=== PATIENT | female | born 1950 | race Caucasian/White ===

== ENCOUNTER → 2016-09-29 | Outpatient (CLI) | payer MEDICARE ==
[~2016-09-29] MED LIST: ABILIFY2 MG PO; ALBUTEROL2.5 MG/0.5 INH; AMARYL1 M1 PO; AMITRIPTYLINE25 MG PO; AMOXICILLIN500 M2 PO; ANTIVERT25 MG PO; ASPIRIN81 M1 PO; ATIVAN0.5 MG PO; ATIVAN1 MG PO; ATOXIMETIN-B1 CAP PO; AUGMENTIN 875 M1 TAB PO; AUGMENTIN 875-875 MG PO; BACTRIM DS 8001 TA1 PO; CEFAZOLIN2 GM/20 ML IV; CEPHALEXIN500 M1 PO; CIPRO250 MG PO; CIPRO500 MG PO; CLARITIN10 MG PO; CLEOCIN HCL150 MG PO; CLEOCIN PH600 MG/4 M IV; CLINDAMYCIN HC300 MG PO; COMBIVENT1 ARO IH; COMPAZINE10 MG PO; COREG25 MG PO; COZAAR100 MG PO; CYMBALTA30 MG PO; CYMBALTA60 MG PO; DAYPRO600 M1 PO; DELTASONE10 MG PO; DELTASONE20 M1 PO; DICYCLOMINE HCL20 MG PO; DIFLUCAN100 MG PO; DIOVAN HCT PO; DITROPAN XL5 MG PO; DOXYCYCLINE MO100 MG PO; DOXYCYCLINE100 M3 PO; DOXYCYCLINE100 MG PO; DOXYCYCLINE150 MG PO; DUONEB 3 MG/3 ML3 M1 INH; EC NAPROSYN500 MG PO; ELAVIL10 MG PO; ELAVIL25 MG PO; FLEXERIL10 MG PO; FLONASE ALLERG9.9 ML NAS; FLONASE0.05 MG/AC NS; FOLTANX TABLET1 EACH PO; HUMALOG100 U/ML SC; HUMULIN 70100 UNIT/1 SQ; HYDROCODONE BIT1 T11 PO; HYDROXYZINE HYD50 MG PO; IODINE PO; IVIG IV; JANUVIA50 MG PO; JARDIANCE10 MG PO; K-Dur 20MEQ20 MEQ PO; K-TAB20 MEQ PO; KEFLEX500 MG PO; KLOR-CON M1010 MEQ PO; KLOR-CON M2020 MEQ PO; LAMISIL AT11 TP; LAMISIL250 MG PO; LANTUS SOLOS100 U/M1 SC; LANTUS100 U/ML SC; LASIX40 MG PO; LASIX80 MG PO; LEVAQUIN750 M1 PO; LEVOFLOXACIN500 MG PO; LIPITOR10 MG PO; LIPITOR20 MG PO; LOSARTAN POTASS50 M1 PO; LOSARTAN POTASS50 MG PO; MELATONIN10 M2 PO; MELATONIN5 M1 PO; METAXALONE800 MG PO; METOLAZONE5 MG PO; MORPHINE SULFAT30 M9 PO; MUCINEX ER600 MG PO; MUCINEX600 MG PO; NAPROSYN500 MG PO; NAPROXEN D/R500 MG PO; NAPROXEN500 MG PO; NEURONTIN100 MG PO; NEURONTIN300 MG PO; NEURONTIN600 MG PO; NEURONTIN800 MG PO; NICODERM C14 MG/24 H TD; NICODERM C14 MG/241 T; NICOTINE T21 MG/24 H T; NORCO 10-325 T1 EACH PO; NOVAPLUS CLINDA1 SO1 IV; NOVOLOG 70/30 M10 ML SC; NOVOLOG FLEX100 U/ML SC; NYSTATIN T; NYSTATIN100000 U/M PO; OMEPRAZOLE20 M2 PO; OXYBUTYNIN5 MG PO; PERCOCET 325 MG1 TA5 PO; PERCOCET 325 MG1 TA7 PO; PERCOCET 325 MG1 TAB PO; PERCOCET 500 MG1 TAB PO; PHENERGAN25 M1 PO; POTASSIUM CHLO20 ME3 PO; POTASSIUM20 MEQ PO; PREDNISONE10 MG PO; PRILOSEC20 MG PO; PRILOSEC40 MG PO; PROVENTIL0.09 MG/AC IH; RANITIDINE HCL300 M2 PO; REMERON45 MG PO; ROBAXIN750 MG PO; ROBITUSSIN AC 110 ML PO; SIMVASTATIN20 MG PO; SIMVASTATIN40 MG PO; SINGULAIR10 M1 PO; SKELAXIN800 MG PO; SPIRIVA18 MCG PO; STRESS PO; SYMBICORT1 AE1 IH; SYMBICORT1 AE1 INH; TOPAMAX25 M3 PO; TORSEMIDE100 MG PO; TRAMADOL HCL50 MG PO; VANCO 1.51.5 GM/500 IV; VENTOLIN H0.09 MG/AC INH; VENTOLIN0.09 MG/AC INH; VIBRA-TAB100 M1 PO; VICODIN 5/500 505 M1 PO; VICODIN 5/500 505 MG PO; VICODIN ES 7501 TA1 PO; VISTARIL25 MG PO; VITAMIN D1000 IU PO; VITAMIN D5000 I3 PO; VITAMIN D50000 I1 PO; VITAMIN E100 UNI1 PO; VOLTAREN1% TP; VOLTAREN11 TP; VOLTAREN50 M1 PO; ZANTAC150 MG PO; ZITHROMAX Z PA250 MG PO; ZITHROMAX250 MG PO; ZITHROMAX500 MG PO; ZOFRAN4 MG PO; Zaroxolyn,Diul2.5 MG PO; Zofran4 MG PO; [UNRECOGNIZED DRUG - OTHER] TP
--- NOTE | ~2016-09-29 | PR ---
[place], [place] PROGRESS NOTE NAME: JACKIE VILLASENOR [facility] #: [id number] UNIT #: [id number] ROOM: DOCTOR: TRACY LowryJULIO BIRTHDATE: [birth year] DOS: 09/29/2016 CHIEF COMPLAINT: Followup of left great toe ulceration as well as cellulitis of the right leg. HISTORY OF PRESENT ILLNESS: The patient has had an ulcer of her left great toe that has been going on for 2-1/2 months at least. It is associated with diabetes, neuropathy, and recurrent callus formation. Modifying factors are difficulty offloading. She has problems with balance issues and she will not be able to tolerate a contact cast. She even has difficulty tolerating just a regular postop shoe. She is using Puracol Ag in the wound and has not had any new complaints. She is also using a foam dressing as well. She does have a history of recent cellulitis of the right leg, which is definitely resolved at this point. She has a very small open wound present on the right leg, which is definitely small and is almost healed at this point with no specific issues. She said she had a recent steroid injection due to her breathing. Her other modifying factors are poorly controlled edema, diabetes, neuropathy as well as severe COPD, chronic shortness of breath, dyspnea, and immunodeficiency. OBJECTIVE: Her vital signs are stable. Blood pressure is 120/60, pulse of 68, respirations 18, temperature is 98.8. The left great toe is open still at 0.5 x 0.5 x 0.1. There is surrounding callus as before, but not quite as thick. There is no edema. There is no erythema and no tenderness. There is no purulence or sign of infection. The right lower extremity wound is still very slightly open at 1 x 0.3 x 0.1. There is really minimal adherent slough present, but it looks really good. Distally, the wound has healed, her distal wound on her right leg. Her erythema is definitely improved and she seems to be at baseline. She has chronic erythema of her bilateral lower extremities. Her debridement was done of the left great toe. This is a selective debridement only. The tissue removed was just callus. This was accomplished with a #15 blade. There was minimal amount of bleeding. The post-debridement measurements are 0.6 x 0.6 x 0.2. The patient tolerated the debridement well. The tissue removed was just callus formation at this point. ASSESSMENT AND PLAN: Chronic slowly healing wound of the left great toe. I believe this is really having difficulty issues healing it secondary to recurrent callus formation. She does have shoes that are diabetic, which she is due for a new pair of diabetic shoes sometime in October. I hope to touch base with her hub inventory specialist regarding this to see if he thinks we can get her a more open toe box to help with recurrent wounds of her toes. The wounds of her right lower extremity are healing quite well. The area was cleaned with a sterile Q-tip and it is fairly superficial, so debridement was not done on this wound. Cellulitis has resolved. The patient is to continue with the collagen dressing. We will consider using Endoform at the next visit. Followup in 1 week. [place], [place] PROGRESS NOTE NAME: JACKIE VILLASENOR UNIT #: [id number] ROOM: DOCTOR: JULIO MOLINA M.D. BIRTHDATE: [birth year] JULIO MOLINA MD CM:JOSE [id number] JULIO MOLINA M.D. 09/30/16 0027 interface
== END ==
LOC: WOUNDCARE 08:20
DX: E11.621 Type 2 diabetes mellitus with foot ulcer (principal); L97.522 Non-pressure chronic ulcer of other part of left foot with fat layer exposed; E11.40 Type 2 diabetes mellitus with diabetic neuropathy, unspecified; L84 Corns and callosities; J44.9 Chronic obstructive pulmonary disease, unspecified; D84.9 Immunodeficiency, unspecified

== ENCOUNTER 2016-10-10 15:02 | Inpatient (IN) | payer MEDICARE ==
[~2016-10-10] VITALS: Ht 160 cm; Wt 91.8 kg
--- NOTE | ~2016-10-10 | PR ---
[place], [place] PROGRESS NOTE NAME: JACKIE VILLASENOR UNIT #: [id number] ROOM: 424 DOCTOR: LYLA EVANS MD BIRTHDATE: [birth year] DOS: 10/12/2016 PULMONARY PROGRESS NOTE SUBJECTIVE: She was seen and examined. She has been noted with reduction in shortness breath in the last 24 hours. The cough has been noted with small amount of sputum expectoration. Culture preliminary showing normal vinod. Denies symptoms of chest pain or any abdominal pain. OBJECTIVE: VITAL SIGNS: For the patient, which has been recorded showed the temperature of the patient noted as normal, respiratory rate of 18, heart rate of 79, blood pressure 156/60-149/70. HEENT: Examination shows head was atraumatic. Eyes nonicterus. NECK: Supple. CARDIOVASCULAR SYSTEM: S1, S2 is audible. LUNGS: For the patient noted without any wheezing or crackles at the present time. Breaths are noted generally decreased bilaterally. ABDOMEN: Soft, nontender. LABORATORY DATA: CBC of this morning for this patient was noted with WBC count of 21.4, hemoglobin 11.9, hematocrit 37.6, platelet count 311,000. BMP of the patient this morning, glucose 264, BUN 26, creatinine was normal. The culture of the sputum of the patient showing preliminary normal vinod. The Gram-stain noted with moderate white blood cells, few epithelial cells, moderate gram-positive cocci in clusters and rare budding yeast. IMPRESSION: Leukocytosis for the patient with acute tracheobronchitis with acute exacerbation of bronchial asthma. History of chronic nicotine dependence, chronic obesity, type 2 diabetes mellitus and multiple other medical problems as known. PLAN OF TREATMENT: Tapering dose of prednisone upon discharge with antibiotics, monitoring leukocytosis. Other therapy and plan of management. Usual care. Supportive plan of care and other treatments as well. Tobacco cessation has been addressed to the patient again. [place], [place] PROGRESS NOTE NAME: JACKIE VILLASENOR UNIT #: [id number] ROOM: 424 DOCTOR: LYLA EVANS MD BIRTHDATE: [birth year] LYLA CELESTIN MD CM:PNTRANS [id number] LYLA RICE MD 10/13/163 interface
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
--- NOTE | ~2016-10-10 | EKG ---
[place], [place] ELECTROCARDIOGRAM REPORT NAME: JACKIE VILLASENOR UNIT #: [id number] ROOM: 424 DOCTOR: KAZ GLEASON MD BIRTHDATE: [birth year] DOS: 10/10/2016 TIME: 1543 hours. Normal sinus rhythm at 79 beats per minute. Minimal ST segment depression in lead I, II, III, aVF and V5 and V6 is present. Tracing of possible inferior and lateral wall myocardial ischemia. No previous tracing is available for comparison. KAZ GLEASON MD CM:EKGRPT:ELECTROCARDIOGRAM REPORT 1703 [id number] KAZ GLEASON MD
--- NOTE | ~2016-10-10 | CON ---
[place], [place] REPORT OF CONSULTATION NAME: JACKIE VILLASENOR [facility] #: [id number] UNIT #: [id number] ROOM: 424 DOCTOR: FAWAD RICE MDLYLA BIRTHDATE: [birth year] DOS: 10/11/2016 PULMONARY CONSULTATION EVALUATION Consultation was requested by the hospitalist services. REASON FOR CONSULTATION: To assess the patient with acute exacerbation of chronic obstructive pulmonary disease. HISTORY OF PRESENT ILLNESS: This is a 66-year-old white female who has been known to me from the past. The patient has been admitted to the hospital as the patient presented to the Emergency Room on 10/10/2016. The patient reported symptoms of having increased shortness of breath, which is described to be quite severe with progressive coughing with yellowish sputum expectoration for a couple of weeks. She has been treated with antibiotics, prednisone, Levaquin from office. She has taken the medication and have not been responding to treatment with increased symptoms described. The cough has been still noted intermittently. She was also noted with low-grade fever. The patient does have symptoms of significant shortness breath, which worsened for this patient in the last couple of days. She was also noted wheezing with tightness in the chest. The patient denies any symptoms of acute chest pain. REVIEW OF SYSTEMS: CONSTITUTIONAL: Tiredness and fatigue were noted without any symptoms of chills, but complains of low-grade fever. EYES: Denies any burning, redness, or tenderness. EARS, NOSE, THROAT: Denies sore throat, hoarseness, or otalgia, postnasal drainage or epistaxis. CARDIOVASCULAR: Denies anginal pain, edema, pain of the lower extremities or palpitations. GASTROINTESTINAL: Denies nausea, vomiting, diarrhea, abdominal pain, hematemesis, melena, or hematochezia. GENITOURINARY: Denies dysuria, suprapubic pain, hematuria. MUSCULOSKELETAL: Denies any acute joint pain, redness, or tenderness. SKIN: No lesions or rashes. CENTRAL NERVOUS SYSTEM: The patient was complaining of headache for this patient not responding to the [id number] medications. Denies any symptoms of syncopal episodes or acute seizures or tingling sensations. Remaining systems were reviewed with the patient, they were noted all negative. PAST MEDICAL HISTORY: This patient was noted with history of: 1. Uncomplicated moderate persistent bronchial asthma. 2. History of chronic nicotine dependence. 3. Diabetic foot both sides for the patient, which has been treated with by the wound manager business management. 4. Chronic obesity. 5. Chronic hypoxic respiratory failure, use of oxygen 2 liters nasal cannula. 6. History of coronary artery disease. 7. Hyperlipidemia. 8. Chronic obesity. [place], [place] REPORT OF CONSULTATION NAME: JACKIE VILLASENOR UNIT #: [id number] ROOM: [facility] DOCTOR: FAWAD RICE [facility] BIRTHDATE: [birth year] 9. Generalized anxiety neurosis. 10. Gastroesophageal reflux. 11. Restless legs syndrome. PAST SURGICAL HISTORY: 1. Cholecystectomy. 2. Partial hysterectomy. 3. T and A. 4. Partial amputation of the toe. 5. Right shoulder arthroplasty. 6. MediPort insertion. 7. Fiberoptic bronchoscopy. SOCIAL HISTORY: The patient is . The patient lives at home, has 2 children. Smoking started for the patient at the age of [age] years old, half a pack of cigarettes per day, intermittently 2 pack of cigarettes per day was described by the patient. She has been currently actively smoking cigarettes. Denies history of alcohol use or illicit drug use. There was no history of occupational related pulmonary exposure. FAMILY HISTORY: The patient's father at the age 72 years complication of COPD. Mother with history of cardiac disease and stroke. MEDICATIONS: The current administered medication of the patient noted use of Lipitor, Singulair, Flonase, losartan, Protonix, Neurontin, Mucinex, Coreg, potassium chloride, Abilify, Dulera, Cymbalta, IV Solu-Medrol, sliding scale insulin coverage, DuoNeb, Lovenox for DVT prophylaxis, Zithromax IV, IV Rocephin, hydroxyzine, and other p.r.n. medications administration. DRUG ALLERGY HISTORY: The patient noted as allergy to SULFA DRUGS. PHYSICAL EXAMINATION: GENERAL: A 66-year-old female who has been noted currently awake and alert. VITAL SIGNS: Height 5 feet 3 inches, weight of 202 pounds. BMI 35.8. Vital signs of the patient which have been recorded showed normal temperature, respiratory rate 20, heart rate 84, blood pressure 135/58-149/49. Intake is 1100, output 2500 mL, negative 1400 mL. Pulse oxygen saturation 2-1/2 liters nasal cannula 93% saturation. HEENT: Moderate obesity. Head was atraumatic. Eyes nonicterus. NECK: Supple. CARDIOVASCULAR: S1, S2 is audible. LUNGS: For the patient noted without any crackles. Moderate decreased breath sounds noted with expiratory wheezing. ABDOMEN: Soft, obese, nontender. Bowel sounds present. CENTRAL NERVOUS SYSTEM: For the patient was noted cranial nerves 2 through 12 intact. No focal deficit. MUSCULOSKELETAL: No deformities. SKIN: No lesions or rashes. LABORATORY DATA: IgG level of the patient done on 10/04/[address] Rios, [place], [place] REPORT OF CONSULTATION NAME: JACKIE VILLASENOR UNIT #: [id number] ROOM: [facility] DOCTOR: REJI EVANS MDM BIRTHDATE: [birth year] 626, mild to moderately decreased. The CBC of patient that was done as an outpatient 10/04/2016, WBC count 47.4, platelet count 126,000. Other CBC was normal. Lactic acid yesterday was normal on admission. CBC yesterday, WBC count 16.4 with normal platelet count, hemoglobin and hematocrit. PT/PTT yesterday noted normal. CMP of the patient yesterday, glucose 171, remaining CMP completely normal including troponins. BMP of the patient this morning, glucose 342, BUN and creatinine was normal. The troponin for the patient and addition of couple of sets for the patient were noted as normal. CBC today: WBC count 14.8, remaining CBC was normal. Chest x-ray of the patient 1-view, which was done in the Emergency Room, personally reviewed on 10/10/2016, shows no acute pulmonary infiltration, change in hyperinflation were noted. CT scan of the head, which was done without contrast yesterday in the Emergency Room does not show any acute intracranial pathologies. IMPRESSION: 1. The patient who has been noted persistent acute and progressive respiratory symptoms secondary to chronic nicotine dependence with acute exacerbation of bronchial asthma and acute bacterial bronchitis. 2. History of general anxiety and depression and several social problems described with the patient leading to increased tobacco use. 3. The patient with history of diabetic foot. 4. Type 2 diabetes mellitus, gastroesophageal reflux, and chronic hypoxic respiratory failure. PLAN OF TREATMENT: Order the sputum for Gram stain and culture. Monitor respiratory status closely. Continue current dose of corticosteroids, antibiotics. Continuation of Mucinex as well as the flutter valve use. Supportive therapy and the plan of management. Obtain PA and lateral chest x-ray to document and make sure there is no other infiltration noted for this patient with especially in the lower lungs. Supportive plan of management. Other usual treatment, plan of care. Further treatment changes will be done based on the progression of the illness. Consider fiberoptic bronchoscopy for the patient as needed. Thanks for allowing me to participate in the care of this patient. LYLA CELESTIN MD CM:CONSTR:REPORT OF CONSULTATION 1112 10/11/16 2436 interface
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
[~2016-10-10 15:02] MED LIST changes: -AMARYL1 M1 PO; -AMOXICILLIN500 M2 PO; -DELTASONE20 M1 PO; -HUMULIN 70100 UNIT/1 SQ; -JARDIANCE10 MG PO; -LIPITOR20 MG PO; -MUCINEX ER600 MG PO; -NEURONTIN300 MG PO; -OMEPRAZOLE20 M2 PO; -TOPAMAX25 M3 PO; -TRAMADOL HCL50 MG PO; -[UNRECOGNIZED DRUG - OTHER] TP
[2016-10-10 15:11] VITALS: BP 115/44
[2016-10-10 16:00] LABS: BASO # 0.1 10*3/uL (0.0-0.1); BASO % 0.6 % (0.0-1.0); EOS # 0.8 10*3/uL (0.0-0.4); HEMATOCRIT 44.2 % (37.0-47.0); HEMOGLOBIN 13.8 g/dl (12.0-16.0); IG # 0.1 10*3/uL (0.0-0.1); LYMPH # 3.5 10*3/uL (1.3-4.4); LYMPH % 21.3 % (27.0-41.0); MEAN CORPUSCULAR HGB 30.6 pg (27.0-31.0); MEAN CORPUSCULAR HGB CONC 31.2 g/dl (33.0-37.0); MEAN PLATELET VOLUME 8.5 fl (9.6-12.3); MONO # 1.1 10*3/uL (0.1-1.0); MONO % 6.4 % (3.0-9.0); NEUT # 10.8 10*3/uL (2.3-7.9); NEUT % 66.2 % (47.0-73.0); PLATELET COUNT AUTOMATED 337 10*3/uL (130-400); RED BLOOD COUNT 4.51 10*6/uL (4.10-5.10); RED CELL DISTRI WIDTH 13.6 % (0-14.5); WHITE BLOOD COUNT 16.4 10*3/uL (4.8-10.8)
[2016-10-10 16:09] LABS: INTERNATIONAL NORM RATIO 0.9 (2.0-3.5)
[2016-10-10 16:20] LABS: ALBUMIN 3.2 gm/dl (3.1-4.5); ALKALINE PHOSPHATASE 103 U/L (45-117); BILIRUBIN, TOTAL 0.2 mg/dl (0.2-1.0); BUN 22 mg/dl (7-24); CARBON DIOXIDE 30 mmol/L (21-32); CHLORIDE 103 mmol/L (98-107); EST GLOM FILT AFRICAN AMERICAN > 60 ml/min; GLUCOSE 171 mg/dL (65-99); MAGNESIUM 2.1 mg/dL (1.5-2.1); POTASSIUM 4.3 mmol/L (3.5-5.1); SGOT/AST 10 IU/L (3-35); SGPT/ALT 21 U/L (12-78); SODIUM 141 mmol/L (136-145); TOTAL PROTEIN 7.4 gm/dL (6.4-8.2); TROPONIN I < 0.015 ng/ml (<0.5)
[2016-10-10 16:40] VITALS: BP 122/74
[2016-10-10 18:30] VITALS: BP 143/59
[2016-10-10] MEDS ORDERED: OMEPRAZOLE20 M2 PO (18:57)
[2016-10-10] MEDS ORDERED: LIPITOR20 MG PO (19:00)
[2016-10-10 20:00] VITALS: BP 154/46
[2016-10-10] MEDS ORDERED: NEURONTIN300 MG PO (21:25)
[2016-10-11] VITALS: BP 149/49
[2016-10-11 04:05] LABS: HEMATOCRIT 39.8 % (37.0-47.0); HEMOGLOBIN 12.7 g/dl (12.0-16.0); MEAN CELL VOLUME 96.4 fl (81.0-99.0); MEAN CORPUSCULAR HGB 30.8 pg (27.0-31.0); MEAN CORPUSCULAR HGB CONC 31.9 g/dl (33.0-37.0); MEAN PLATELET VOLUME 8.8 fl (9.6-12.3); PLATELET COUNT AUTOMATED 300 10*3/uL (130-400); RED BLOOD COUNT 4.13 10*6/uL (4.10-5.10); RED CELL DISTRI WIDTH 13.4 % (0-14.5); WHITE BLOOD COUNT 14.8 10*3/uL (4.8-10.8)
[2016-10-11 04:28] LABS: BUN 22 mg/dl (7-24); CARBON DIOXIDE 27 mmol/L (21-32); CHLORIDE 100 mmol/L (98-107); EST GLOM FILT AFRICAN AMERICAN > 60 ml/min; FREE T4 1.09 ng/dl (0.76-1.46); GLUCOSE 342 mg/dL (65-99); SODIUM 137 mmol/L (136-145); THYROID STIM HORMONE (HS) 0.277 uIU/ml (0.358-4.75)
[2016-10-11 04:32] LABS: LYMPHOCYTE # 0.4 10*3/uL (1.3-4.4); MONOCYTE # 0.1 10*3/uL (0.1-1.0); NEUTROPHIL # 14.2 10*3/uL (2.3-7.9); NEUTROPHILS 96 % (47-73); TOTAL CELLS COUNTED 100 #CELLS
[2016-10-11 04:33] LABS: PLATELET SUFFICIENCY NORMAL (NORMAL)
[2016-10-11 07:13] LABS: FOLIC ACID 8.79 ng/mL (>5.38)
[2016-10-11 08:20] VITALS: BP 138/58
[2016-10-11 12:00] VITALS: BP 145/65
[2016-10-11 16:00] VITALS: BP 161/62
[2016-10-11 20:00] VITALS: BP 162/62
[2016-10-12] VITALS: BP 149/70
[2016-10-12 06:58] LABS: HEMATOCRIT 37.6 % (37.0-47.0); HEMOGLOBIN 11.9 g/dl (12.0-16.0); MEAN CELL VOLUME 96.4 fl (81.0-99.0); MEAN CORPUSCULAR HGB 30.5 pg (27.0-31.0); MEAN CORPUSCULAR HGB CONC 31.6 g/dl (33.0-37.0); MEAN PLATELET VOLUME 9.5 fl (9.6-12.3); PLATELET COUNT AUTOMATED 311 10*3/uL (130-400); RED CELL DISTRI WIDTH 13.5 % (0-14.5); WHITE BLOOD COUNT 21.4 10*3/uL (4.8-10.8)
[2016-10-12 07:06] LABS: BUN 28 mg/dl (7-24); CARBON DIOXIDE 29 mmol/L (21-32); CHLORIDE 103 mmol/L (98-107); EST GLOM FILT AFRICAN AMERICAN > 60 ml/min; GLUCOSE 264 mg/dL (65-99); MAGNESIUM 2.3 mg/dL (1.5-2.1); PHOSPHOROUS 2.9 mg/dL (2.5-4.9); POTASSIUM 4.7 mmol/L (3.5-5.1); SODIUM 138 mmol/L (136-145)
[2016-10-12 07:23] LABS: LYMPHOCYTE # 0.9 10*3/uL (1.3-4.4); NEUTROPHIL # 20.5 10*3/uL (2.3-7.9); NEUTROPHILS 96 % (47-73); PLATELET SUFFICIENCY NORMAL (NORMAL); TOTAL CELLS COUNTED 100 #CELLS
[2016-10-12 09:22] VITALS: BP 156/60
[2016-10-12 12:00] VITALS: BP 151/58
[2016-10-12] MEDS ORDERED: MUCINEX ER600 MG PO (12:33)
[2016-10-12] MEDS ORDERED: DOXYCYCLINE100 M3 PO (12:56)
[2016-10-12] MEDS ORDERED: PREDNISONE10 MG PO (13:20)
[2016-11-05] MEDS ORDERED: TOPAMAX25 M3 PO (09:55)
[2016-12-07] MEDS ORDERED: DELTASONE20 M1 PO (18:43)
[2016-12-07] MEDS ORDERED: JARDIANCE10 MG PO (18:43)
[2016-12-07] MEDS ORDERED: TRAMADOL HCL50 MG PO (18:45)
[2016-12-07] MEDS ORDERED: AMOXICILLIN500 M2 PO (18:46)
[2016-12-07] MEDS ORDERED: [UNRECOGNIZED DRUG - OTHER] TP (18:47)
[2016-12-07] MEDS ORDERED: HUMULIN 70100 UNIT/1 SQ (18:50)
[2016-12-07] MEDS ORDERED: AMARYL1 M1 PO (18:51)
== END 2016-10-12 14:50 | disposition home health service (06) | DRG 872 ==
LOC: ED 15:02 → EDHOLD 17:05 → 4E 17:05
PROVIDERS: Hospitalist; Internal Medicine Hospice and Palliative Medicine; Student in an Organized Health Care Education/Training Program
DX: A41.9 Sepsis, unspecified organism (principal); J96.11 Chronic respiratory failure with hypoxia; J44.0 Chronic obstructive pulmonary disease with (acute) lower respiratory infection; I13.0 Hypertensive heart and chronic kidney disease with heart failure and stage 1 through stage 4 chronic kidney disease, or unspecified chronic kidney disease; E11.22 Type 2 diabetes mellitus with diabetic chronic kidney disease; I50.32 Chronic diastolic (congestive) heart failure; J45.901 Unspecified asthma with (acute) exacerbation; J44.1 Chronic obstructive pulmonary disease with (acute) exacerbation; F33.9 Major depressive disorder, recurrent, unspecified; E11.65 Type 2 diabetes mellitus with hyperglycemia; E78.5 Hyperlipidemia, unspecified; F41.9 Anxiety disorder, unspecified; N39.3 Stress incontinence (female) (male); F51.01 Primary insomnia; M19.90 Unspecified osteoarthritis, unspecified site; N18.9 Chronic kidney disease, unspecified; K21.9 Gastro-esophageal reflux disease without esophagitis; K58.9 Irritable bowel syndrome, unspecified; J20.9 Acute bronchitis, unspecified; E66.9 Obesity, unspecified; I25.10 Atherosclerotic heart disease of native coronary artery without angina pectoris; Z85.828 Personal history of other malignant neoplasm of skin; Z90.710 Acquired absence of both cervix and uterus; Z90.49 Acquired absence of other specified parts of digestive tract; Z89.421 Acquired absence of other right toe(s); Z98.890 Other specified postprocedural states; Z82.3 Family history of stroke; Z82.49 Family history of ischemic heart disease and other diseases of the circulatory system; Z82.5 Family history of asthma and other chronic lower respiratory diseases; Z88.2 Allergy status to sulfonamides; Z91.048 Other nonmedicinal substance allergy status; Z79.4 Long term (current) use of insulin; Z79.899 Other long term (current) drug therapy; Z99.81 Dependence on supplemental oxygen; Z68.35 Body mass index [BMI] 35.0-35.9, adult

== ENCOUNTER 2016-10-17 16:10 | Emergency (ER) | payer MEDICARE ==
[~2016-10-17] VITALS: Ht 157.4 cm; Wt 90.3 kg
--- NOTE | ~2016-10-17 | EKG ---
[place], [place] ELECTROCARDIOGRAM REPORT NAME: JACKIE VILLASENOR UNIT #: [id number] ROOM: DOCTOR: KAZ GLEASON MD BIRTHDATE: [birth year] DOS: 10/17/2016 TIME: 1702 hours. Normal sinus rhythm at 86 beats per minute. Nonspecific ST-T wave changes in V4-V6. There is mild ST segment depression in inferior leads that raises the possibility of ischemia. No previous tracing is available for comparison. KAZ GLEASON MD CM:EKGRPT:ELECTROCARDIOGRAM REPORT 56 32 KAZ GLEASON MD
[~2016-10-17 16:10] MED LIST changes: +LIPITOR20 MG PO; +MUCINEX ER600 MG PO; +NEURONTIN300 MG PO; +OMEPRAZOLE20 M2 PO
[2016-10-17 17:04] LABS: BILIRUBIN NEGATIVE (NEGATIVE); BLOOD NEGATIVE (NEGATIVE); CLARITY CLEAR (CLEAR); COLOR YELLOW (YELLOW); GLUCOSE 3+ (NEGATIVE); KETONE NEGATIVE (NEGATIVE); LEUKO ESTERASE NEGATIVE (NEGATIVE); NITRITE NEGATIVE (NEGATIVE); PH 6.5 (5.0-9.0); PROTEIN TRACE (NEGATIVE); UROBILINOGEN 0.2 E.U./dl (0.2-1.0)
[2016-10-17 17:07] LABS: BASO % 0.2 % (0.0-1.0); EOS # 0.1 10*3/uL (0.0-0.4); EOS % 0.6 % (1.0-4.0); IG # 0.2 10*3/uL (0.0-0.1); LYMPH # 3.6 10*3/uL (1.3-4.4); MEAN CELL VOLUME 94.7 fl (81.0-99.0); MEAN CORPUSCULAR HGB 30.8 pg (27.0-31.0); MEAN CORPUSCULAR HGB CONC 32.6 g/dl (33.0-37.0); MONO % 5.1 % (3.0-9.0); NEUT # 14.9 10*3/uL (2.3-7.9); NEUT % 75.2 % (47.0-73.0); PLATELET COUNT AUTOMATED 306 10*3/uL (130-400); RED BLOOD COUNT 4.54 10*6/uL (4.10-5.10); RED CELL DISTRI WIDTH 13.5 % (0-14.5); WHITE BLOOD COUNT 19.8 10*3/uL (4.8-10.8)
[2016-10-17 17:11] LABS: RBC 0-2 rbc/hpf (0-2); URINE REFLEX COMMENT NO (NO); WBC 0-2 wbc/hpf (0-5)
[2016-10-17 17:24] LABS: ALKALINE PHOSPHATASE 68 U/L (45-117); BILIRUBIN, TOTAL 0.4 mg/dl (0.2-1.0); BUN 24 mg/dl (7-24); CARBON DIOXIDE 32 mmol/L (21-32); CHLORIDE 95 mmol/L (98-107); EST GLOM FILT AFRICAN AMERICAN > 60 ml/min; GLUCOSE 253 mg/dL (65-99); POTASSIUM 4.5 mmol/L (3.5-5.1); SGOT/AST 6 IU/L (3-35); SGPT/ALT 26 U/L (12-78); SODIUM 136 mmol/L (136-145); TOTAL PROTEIN 6.6 gm/dL (6.4-8.2)
[2016-10-17 17:26] LABS: TROPONIN I < 0.015 ng/ml (<0.5)
[2016-10-17 20:38] VITALS: BP 152/63
[2016-11-05] MEDS ORDERED: TOPAMAX25 M3 PO (09:55)
[2016-12-07] MEDS ORDERED: DELTASONE20 M1 PO (18:43)
[2016-12-07] MEDS ORDERED: JARDIANCE10 MG PO (18:43)
[2016-12-07] MEDS ORDERED: TRAMADOL HCL50 MG PO (18:45)
[2016-12-07] MEDS ORDERED: AMOXICILLIN500 M2 PO (18:46)
[2016-12-07] MEDS ORDERED: [UNRECOGNIZED DRUG - OTHER] TP (18:47)
[2016-12-07] MEDS ORDERED: HUMULIN 70100 UNIT/1 SQ (18:50)
[2016-12-07] MEDS ORDERED: AMARYL1 M1 PO (18:51)
== END 2016-10-17 20:39 | disposition home or self-care (01) ==
LOC: ED 16:10
PROVIDERS: Student in an Organized Health Care Education/Training Program
DX: G43.001 Migraine without aura, not intractable, with status migrainosus (principal); I12.9 Hypertensive chronic kidney disease with stage 1 through stage 4 chronic kidney disease, or unspecified chronic kidney disease; N18.9 Chronic kidney disease, unspecified; E11.40 Type 2 diabetes mellitus with diabetic neuropathy, unspecified; I50.9 Heart failure, unspecified; K21.9 Gastro-esophageal reflux disease without esophagitis; E11.65 Type 2 diabetes mellitus with hyperglycemia; E78.5 Hyperlipidemia, unspecified; G47.00 Insomnia, unspecified; K58.9 Irritable bowel syndrome, unspecified; E55.9 Vitamin D deficiency, unspecified; F17.200 Nicotine dependence, unspecified, uncomplicated; J44.9 Chronic obstructive pulmonary disease, unspecified; F41.9 Anxiety disorder, unspecified; F32.9 Major depressive disorder, single episode, unspecified; Z98.890 Other specified postprocedural states; Z90.710 Acquired absence of both cervix and uterus; Z90.49 Acquired absence of other specified parts of digestive tract; Z88.2 Allergy status to sulfonamides; Z88.5 Allergy status to narcotic agent

== ENCOUNTER → 2016-10-20 | Outpatient (CLI) | payer MEDICARE ==
[~2016-10-20] MED LIST changes: +AMARYL1 M1 PO; +AMOXICILLIN500 M2 PO; +DELTASONE20 M1 PO; +HUMULIN 70100 UNIT/1 SQ; +JARDIANCE10 MG PO; +TOPAMAX25 M3 PO; +TRAMADOL HCL50 MG PO; +[UNRECOGNIZED DRUG - OTHER] TP
--- NOTE | ~2016-10-20 | PR ---
[place], [place] PROGRESS NOTE NAME: JACKIE VILLASENOR [facility] #: [id number] UNIT #: [id number] ROOM: DOCTOR: TRACY LowryJULIO BIRTHDATE: [birth year] DOS: 10/20/2016 WOUND CARE FOLLOWUP NOTE CHIEF COMPLAINT: Followup of left great toe ulcer. The Elements: The location is the left great toe at the very tip. It is a diabetic ulcer. It is present for 3 months. Modifying factors are diabetes not well controlled, neuropathy, recurrent callus, difficulty offloading. We have encouraged her to try to get different type of shoes; however, she continues to wear the same shoes that she has been wearing for several months now. Modifying factors also include severe debility, chronic oxygen therapy, recent problems with COPD exacerbation requiring steroid therapy. She has been in the hospital recently for several days and just got out late last week. She comes in today without any new specific complaints. OBJECTIVE: VITAL SIGNS: Stable. Blood pressure is 144/82, pulse of 80, respirations 20, temperature 98.2. SKIN: The length of the wound is measuring 0.4 x 0.6 x 0.3. There is pretty abundant callus still present. The base of the wound is clean; however, the granulation tissue is somewhat pale in appearance. Debridement was done today. The tissue removed was a cut callus with a #15 blade as well as some subcutaneous tissue at the base of the wound. This was done with a curette. There was moderate amount of bleeding that was controlled with pressure. The post-debridement measurements are as follows, 0.4 x 0.6 x 0.3. STUDIES: MRI was ordered and was done today. We do not have the results. ASSESSMENT AND PLAN: Chronic diabetic ulcer of the left great toe. We really have not had any significant amount of healing. She continues to come in with recurrent callus which I believe is the reason that she has not healed yet, which is related to her footwear. She does not wear a postop shoe as she has trouble walking with it. She cannot wear a total contact cast or even a bulky dressing caused her to fall, so we are quite limited on options for offloading. She will be getting new diabetic shoes sometime in October. She has a followup appointment with director case. I will touch base with him before her podiatry appointment to see if there is any other kind of footwear we should consider for her. I did ask them to bring in a pair of old shoes if possible that I could open up a little bit where the toe is and see if that would help offload the toe better, however, she has not done this yet. We will continue with a collagen dressing, we will try and use Endoform this time and have her followup in [facility] next week. We will follow up with the MRI as soon as report is available. [place], [place] PROGRESS NOTE NAME: JACKIE VILLASENOR UNIT #: [id number] ROOM: DOCTOR: JULIO MOLINA M.D. BIRTHDATE: [birth year] JULIO MOLINA MD CM:JOSE [phone] JULIO MOLINA M.D. 10/21/16 0145 interface
== END | disposition home or self-care (01) ==
LOC: MRI 10-13 14:00
DX: E11.621 Type 2 diabetes mellitus with foot ulcer (principal); L97.519 Non-pressure chronic ulcer of other part of right foot with unspecified severity; D83.9 Common variable immunodeficiency, unspecified; R51 Headache; L97.522 Non-pressure chronic ulcer of other part of left foot with fat layer exposed

== ENCOUNTER → 2017-02-22 | Outpatient (CLI) | payer MEDICARE | END | disposition home or self-care (01) | LOC: CT 08:33 | DX: R10.12 Left upper quadrant pain (principal); R10.11 Right upper quadrant pain; J18.9 Pneumonia, unspecified organism; J84.89 Other specified interstitial pulmonary diseases ==

== ENCOUNTER 2017-03-06 10:12 | Inpatient (IN) | payer MEDICARE ==
[~2017-03-06] VITALS: Ht 157.4 cm; Wt 91.7 kg
--- NOTE | ~2017-03-06 | CON ---
[place], [place] REPORT OF CONSULTATION NAME: JACKIE VILLASENOR UNIT #: [id number] ROOM: 501 DOCTOR: FAWAD RICE MD,LYLA BIRTHDATE: [birth year] DOS: 03/06/2017 REASON FOR CONSULTATION: The patient with current tracheostomy and possibility of respiratory tract infection. HISTORY OF PRESENT ILLNESS: This is a 66-year-old female, current resident of [facility] after prolonged hospitalization at [facility] for an abdominal problem, underwent exploratory laparotomy and other interventions. The patient also developed acute respiratory failure, could not be liberated from the mechanical ventilator, required a tracheostomy, tracheostomy decannulated requiring reinsertion of tracheostomy as well because of major respiratory failure. Currently, the patient is staying at [facility] for the past 3-4 weeks. She has been known to me. The patient developed progressive edema of the lower extremities over there, also developed cellulitis, which has been treated by the primary care physician. The patient has a tracheostomy that remains in place. The tracheostomy, remains for this patient is same #4 Shiley trach. The capping trials for the patient have been done intermittently, use of a Passy-Concordia valve as well. She has been admitted to the hospital as the patient developed significant diffuse pain which is described in the abdomen. The pain for this patient described to be severe and crampy in nature. She was also noted with worsening of the edema of the lower extremities as well with increased redness and worsening of the cellulitis. The patient does have some cough, which has been noted nonproductive at times. She is able to expectorate sputum at times through the tracheostomy. She has not been noted with symptoms of hemoptysis. Shortness of breath occurs only with capping of the trach trial for the patient at times. There was no wheezing. REVIEW OF SYSTEMS: CONSTITUTIONAL SYMPTOMS: Fatigue and tiredness noted without symptoms of fever or chills. EYES: Denies any burning, redness, or tenderness. EARS, NOSE, THROAT: No sore throat, hoarseness, otalgia, postnasal drainage or epistaxis. CARDIOVASCULAR: Denies anginal pain, edema of the lower extremities or palpitations. GASTROINTESTINAL: Denies dysphagia, nausea, vomiting, diarrhea, abdominal pain, hematemesis, melena, hematochezia. SKIN: Denies any lesions or rashes except cellulitis of lower extremity with redness as noted and some breakdown of the left lower extremity. CENTRAL NERVOUS SYSTEM: Denies dizziness, headache, diplopia or syncopal episodes. NEUROPSYCH: History of severe generalized anxiety disorder. Remaining systems were reviewed with the patient, they were noted all negative. PAST MEDICAL HISTORY: 1. Noted with hospitalization in [facility] for the patient and later on long-term acute care, currently treated in the [facility] for many different problems. 2. History of uncomplicated moderate persistent bronchial asthma. 3. Past tobacco use. 4. Diabetic foot wound for the patient, which has been known previously for the [place], [place] REPORT OF CONSULTATION NAME: JACKIE VILLASENOR UNIT #: [id number] ROOM: [facility] DOCTOR: FAWAD RICE [facility] BIRTHDATE: [birth year] patient. 5. Type 2 diabetes mellitus. 6. Chronic obesity. 7. Chronic hypoxic respiratory failure, currently on oxygen supplementation with a permanent tracheostomy. 8. Coronary artery disease. 9. Hyperlipidemia. 10. Generalized anxiety disorder. 11. Gastroesophageal reflux. 12. Restless leg syndrome. PAST SURGICAL HISTORY: 1. Cholecystectomy. 2. T and A. 3. Partial hysterectomy. 4. Partial amputation of the toe. 5. Right shoulder arthroplasty. 6. MediPort insertion. 7. Bronchoscopy. 8. Permanent tracheostomy. 9. Exploratory laparotomy. SOCIAL HISTORY: The patient is and lives at home. Denies history of alcohol or illicit drug use. Used to smoke 2 packs of cigarettes per day since teenage, which has not been smoked by the patient since she had a tracheostomy since I believe November or December 2016. There was no history of alcohol use or any illicit drug use. FAMILY HISTORY: Father at age 70 due to complications of COPD. Mother from complications related to cardiac disease and stroke. MEDICATIONS: Current administered medication noted: 1. Use of Lovenox for DVT prophylaxis. 2. DuoNeb every 6 hours. 3. IV Zosyn. 4. Vancomycin. 5. Levaquin. DRUG ALLERGY HISTORY: The patient noted as allergy to: 1. CODEINE. 2. SULFA DRUGS. PHYSICAL EXAMINATION: GENERAL: A 66-year-old female noted sitting on the bed for this patient. Height of 5 feet 2 inches, weight of 202 pounds, BMI 37. The patient does not have signs of acute distress. VITAL SIGNS: Temperature 99.2 degree Fahrenheit, respiratory rate 28-20, heart rate 77-101, blood pressure 158-130/47. Pulse oxygen saturation of the patient was noted as 100% on 8 liters simple mask used for the patient for the tracheostomy for oxygen administration. [place], [place] REPORT OF CONSULTATION NAME: JACKIE VILLASENOR UNIT #: [id number] ROOM: [facility] DOCTOR: FAWAD RICE [facility] BIRTHDATE: [birth year] NECK: Supple. HEENT: Head was atraumatic. Eyes, no icterus. CARDIOVASCULAR: S1, S2 audible. LUNGS: The patient noted with [id number] decreased breath sounds without any wheezing or crackles at the present time. ABDOMEN: Soft, obese, nontender. EXTREMITIES: The patient shows severe cellulitis of lower extremity with moderate edema. Some skin breakdown for the patient was noted in the left lower extremity as well, currently with the bandages. CENTRAL NERVOUS SYSTEM: Cranial nerves 2 through 12 intact. No focal deficit. MUSCULOSKELETAL: No deformities. SKIN: Showed no lesions or rashes except cellulitis of the lower extremities. LABORATORY DATA: CBC this morning, the patient's WBC count 9.8, hemoglobin 8.9, hematocrit of 28.1, platelet count was noted as normal. Lactic acid 1.8 today. PT/PTT this morning was normal. CMP of the patient this morning, glucose 158, BUN 5, creatinine was normal. Albumin 2.3, remaining LFTs were normal. CT scan of the abdomen and pelvis, which was done with contrast for the patient on admission in the Emergency Room and the patient shows there was no acute abdominal process for the patient was noted. Postoperative changes in the pelvis for this patient, surrounding inflammatory changes and phlegmonous changes. No drainable fluid collection abscess was described. Finding may be related to cellulitis. Mild hepatic steatosis was also described. Chest x-ray, 2 views, which were taken in the Emergency for the patient on admission, tracheostomy noted in place with increased interstitial marking for the patient was noted in the lower portion of the lungs without any acute pulmonary infiltration. IMPRESSION: 1. The patient with recurrent chronic hypoxic respiratory failure, permanent tracheostomy, currently there are no signs of acute exacerbation of bronchial asthma. Some retained secretions with acute bronchitis cannot be completely excluded. 2. Wound of the lower extremity of the patient with evidence of cellulitis of the lower extremities as well. 3. History of chronic obesity. 4. History of diabetes mellitus as well and other medical illnesses. PLAN OF TREATMENT: Continuation of bronchodilators for the patient, which will be changed every 4 hours for the patient to help improve the secretion clearance. Addition of Pulmicort Respules for patient's long-term management of bronchial asthma. Antibiotics for the patient has been noticed several doses for the patient on admission, needs to be tapered for this patient or reduced based on the culture results of the blood and other supportive test results. Usual care. All of the plan of management and therapies. Thank you for allowing me to participate in the care of this patient. [place], [place] REPORT OF CONSULTATION NAME: JACKIE VILLASENOR UNIT #: [id number] ROOM: [facility] DOCTOR: LYLA EVANS MD BIRTHDATE: [birth year] LYLA CELESTIN MD CM:CONSTR:REPORT OF CONSULTATION 1545 03/07/17 0145 interface
--- NOTE | ~2017-03-06 | PR ---
[place], [place] PROGRESS NOTE NAME: JACKIE VILLASENOR UNIT #: [id number] ROOM: [facility] DOCTOR: LYAL EVANS MD BIRTHDATE: [birth year] DOS: 03/07/2017 SUBJECTIVE: She has been noted comfortable with some reduction in the cough. The oxygen supplementation given by aerosol trach mask. The patient stated reduction in symptoms of abdominal pain. She was still complaining of pain in the lower extremities at the site of the cellulitis. The extremity edema still noted. OBJECTIVE: VITAL SIGNS: Recorded shows temperature noted as normal, respiratory rate 20, heart rate 92, blood pressure 145/49. Pulse oxygen saturation noted on aerosol trach mask 10 liters at 100% saturation noted. HEENT: Shows no acute change. NECK: Supple. CARDIOVASCULAR: S1, S2 is audible. LUNGS: Noted without any wheezing or crackles. ABDOMEN: Soft, nontender. LABORATORY DATA: CMP was done this morning showed glucose 145, BUN and creatinine was normal. CBC this morning, hemoglobin 8.4, hematocrit 26.7, platelet count 297,000. IMPRESSION: 1. Severe cellulitis of bilateral lower extremities was noted at the present time. 2. Permanent tracheostomy at this time with some finding of bronchitis with mucous impaction in the endobronchial tree would be considered. The resolution of the abdominal pain was also noted. PLAN OF TREATMENT: No changes in the plan at this time, maximize the medical management of cellulitis of lower extremity. Continue current respiratory management, oxygen supplementation, bronchodilators and other medications. No other changes in treatment needs to be done today. [place], [place] PROGRESS NOTE NAME: JACKIE VILLASENOR UNIT #: [id number] ROOM: [facility] DOCTOR: LYLA EVANS MD BIRTHDATE: [birth year] LYLA CELESTIN MD CM:PNTRANS [phone] LYLA RICE MD 03/07/171930 interface
--- NOTE | ~2017-03-06 | PR ---
[place], [place] PROGRESS NOTE NAME: JACKIE VILLASENOR [facility] #: [id number] UNIT #: [id number] ROOM: 501 DOCTOR: FAWAD RICE MD,LYLA BIRTHDATE: [birth year] DOS: 03/10/2017 SUBJECTIVE: The patient has been noted comfortable at this time. The coughing of the patient has been decreasing, shortness of breath is improving. Tracheostomy remains in place. No symptoms of chest pain or any abdominal pain. OBJECTIVE: VITAL SIGNS: For the patient, which have been recorded show a normal temperature, respiratory rate 20, heart rate 95, blood pressure 151/55. Pulse oxygen saturation was noted as 96% on 35% oxygen. HEENT: Tracheostomy in place. NECK: Supple. CARDIOVASCULAR: S1, S2 audible. LUNGS: Without any wheeze or crackles were noted. ABDOMEN: Soft, nontender. EXTREMITIES: Remains unchanged. LABORATORY DATA: BMP: Glucose 167, remaining BMP was normal. CBC of the patient, hemoglobin 8, hematocrit 26.2, WBC count normal, platelet count was normal. IMPRESSION: 1. The patient who has been currently noted with history of chronic hypoxic respiratory failure with permanent tracheostomy. 2. Cellulitis of lower extremities of the patient with congestive heart failure. PLAN OF TREATMENT: No change in the plan of management at this time will be needed. Continue the patient's supportive therapy, plan of management and care. Usual treatment. LYLA CELESTIN MD CM:PNTRANS [phone] LYLA RICE MD 03/10/17 0953 interface
--- NOTE | ~2017-03-06 | CON ---
[place], [place] REPORT OF CONSULTATION NAME: JACKIE VILLASENOR UNIT #: [id number] ROOM: 501 DOCTOR: EDWIN MITCHELL MD BIRTHDATE: [birth year] DOS: 03/08/2017 ATTENDING PHYSICIAN: Dr. Kothari. REASON FOR CONSULTATION: Tracheostomy tube change. HISTORY OF PRESENT ILLNESS: The patient is 66-year-old female who is a resident in [facility]. The patient has recently had a prolonged hospitalization at [facility] for abdominal problems and did undergo tracheostomy. I have been consulted by Dr. Kothari for tracheostomy tube change. The patient was examined at the bedside. She has speaking valve size 4 Shiley tracheostomy tube, which she uses without difficulty. The size 4 cuffed Shiley tracheostomy tube was removed and replaced with an uncuffed size 4 Shiley tube without difficulty. The speaking valve was replaced. EDWIN MITCHELL MD CM:CONSTR:REPORT OF CONSULTATION 1507 03/21/17 1528 interface
--- NOTE | ~2017-03-06 | CON ---
[place], [place] REPORT OF CONSULTATION [id number] UN[facility] #: [id number] ROOM: 501 DOCTOR: BLANCA PALACIOS MD BIRTHDATE: [birth year] DOS: 03/07/2017 HISTORY OF PRESENT ILLNESS: The patient is a pleasant 66-year-old [place] woman who was not so well in the past 5 weeks and was at [facility]. She had some cellulitis bilaterally, left more than right. She has been watched closely when she was noticed to have worsening erythema. Subsequently she was advised to go to the hospital for further evaluation. She has a history of immunodeficiency and was consulted for further evaluation and management. PAST MEDICAL HISTORY: Significant for status post colectomy at [facility] due to diverticulitis recently in January, history of tracheostomy at [facility], history of immunodeficiency, anxiety, depression, arthritis, status post bowel perforation, chronic kidney disease, COPD, diabetes, diabetic neuropathy, diastolic CHF, GERD, hypertension, hyperlipidemia, irritable bowel syndrome, insomnia, O2 dependent, type 2 diabetes. PAST SURGICAL HISTORY: As described above, history of hysterectomy, cholecystectomy, colectomy with left colostomy, history of amputation of the lesser toe of the right foot, status post incision and drainage, status post tracheostomy dependent. SOCIAL HISTORY: No drinking or drug use. Smokes half a packet per day. FAMILY HISTORY: Father had emphysema, heart disease, , cerebral infarction. Mother had stroke, heart problems, . ALLERGIES: TAPE, CODEINE, SULFONAMIDE. MEDICATIONS: Tylenol, albuterol sulfate, ammonium lactate, Dulcolax, carvedilol, docusate sodium, famotidine, lorazepam, mag oxide, potassium bicarbonate. PHYSICAL EXAMINATION: GENERAL: Pleasant woman in no apparent distress, being managed by tracheostomy. VITAL SIGNS: Stable. She is afebrile. GENERAL: General appearance: Pleasant patient, no apparent distress. HEENT: Tracheostomy in place, NECK AND THYROID: Neck supple without palpable masses. Trachea is midline. No thyromegaly. No carotid bruit or JVD. BREASTS: Normal. Nipples unremarkable. No drainage. No lumps felt on either side. HEART: Normal S1, S2, without significant murmur, rub, or gallop. LUNGS: Show bilateral rhonchi. ABDOMEN: No costovertebral angle tenderness. Soft. No organomegaly or masses. Nontender. No hernias present. Liver and spleen are not palpable. Colostomy in place. LYMPHATIC: No adenopathy noted in the cervical, supraclavicular, axillary, or inguinal regions. NEUROLOGIC: Nonfocal. Oriented to person, place, and time. [place], [place] REPORT OF CONSULTATION NAME: JACKIE VILLASENOR UNIT #: [id number] ROOM: [facility] DOCTOR: BLANCA PALACIOS MD BIRTHDATE: [birth year] MENTAL STATUS: Appropriate for mood and affect. PERIPHERAL PULSES: No varicosities. Femoral and pedal pulses are palpable. EXTREMITIES: Show bilateral erythema. RADIOLOGY: CT of the abdomen and pelvis done on 03/06 showed no definite acute process, postoperative changes along the anterior pelvic wall with surrounding inflammatory changes and phlegmonous changes. No drainable fluid collection. Mild hepatic steatosis. LABORATORY DATA: White count of 9.8, hemoglobin 8.9, hematocrit 28.1, platelet count of 341. Sodium 137, potassium 3.9, chloride 101, bicarbonate 27, AST 11, ALT 12, EGFR is more than 60. ASSESSMENT: 1. Cellulitis of both lower extremities. 2. Pneumonitis. 3. Immunodeficiency. 4. Anemia of chronic disease. PLAN: I will review the records from [place]. In the meantime, wait till her overall condition improves including broad spectrum antibiotics, Septra. I well review peripheral smears pending further evaluation. I had a detailed discussion with the patient about it and seemed to understand it. Ample time was given for the patient to ask me questions. Thanks for consulting and letting me participate in the care of this interesting patient. BLANCA PALACIOS MD CM:CONSTR:REPORT OF CONSULTATION 1407 03/08/17 0042 interface
--- NOTE | ~2017-03-06 | PR ---
[place], [place] PROGRESS NOTE NAME[id number] UN[facility] #: [id number] ROOM: 501 DOCTOR: BLANCA PALACIOS MD BIRTHDATE: [birth year] DOS: 03/09/2017 SUBJECTIVE: The patient is doing better. PHYSICAL EXAMINATION: GENERAL: She is a pleasant woman in no apparent distress. VITAL SIGNS: Stable. She is afebrile. HEENT: Normocephalic, atraumatic NECK AND THYROID: Supple. No JVD, thyromegaly, or lymphadenopathy. HEART: Normal S1, S2. Regular rate and rhythm. LUNGS: Clear to auscultation and percussion. ABDOMEN: Soft. Nontender, nondistended. Bowel sounds present. EXTREMITIES: Normal ROM. No clubbing. No edema. LABORATORY DATA: White count of 7.6, hemoglobin 8.0, hematocrit 26.0, platelet count 312,000. BUN of 11, glucose 167, EGFR more than 60, sodium 141, potassium 3.7, chloride 105, CO2 is 25, calcium total 9. ASSESSMENT: 1. Sepsis. 2. Cellulitis of both lower extremities. 3. Immunodeficiency. 4. Anemia probably of chronic disease. PLAN: We will give her a couple of units of packed RBC in the meantime. The patient is thinking about going to [facility] for further evaluation and treatment. I had a detailed discussion with the patient's daughter. If she goes to [facility], I can follow up there. Ample time was given for the patient to ask me questions. BLANCA PALACIOS MD CM:PNTRANS [phone] BLANCA PALACIOS MD 03/21/17 1501 interface
--- NOTE | ~2017-03-06 | CON ---
[place], [place] REPORT OF CONSULTATION NAME: [facility]OR [id number] UNIT #: [id number] ROOM: 501 DOCTOR: TORO ADAMS ED.D (AGUILAR) BIRTHDATE: [birth year] DOS: 03/10/2017 HISTORY OF PRESENT ILLNESS: The patient is a 66-year-old female referred by the hospitalist for psychological evaluation. At the present time, this patient is on the 5th floor at [facility]. She is , and has several children. She also has several grandchildren. 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 Her family physician for many years has been Dr. Joshua Mann and her medical history is pertinent for immunodeficiency, depression, arthritis, diverticulitis, bowel perforation, coronary artery disease, COPD, cellulitis, GERD, hypertension, diabetes mellitus type 2. Her medications include Ativan, Levaquin, vancomycin, Pepcid, Cymbalta, calcium, insulin, magnesium hydroxide, albuterol, BuSpar, Cardizem and Lovenox. The patient denies any substance abuse issues, stating that she quit smoking recently. She was awake, alert and oriented in all three spheres. She denies any suicidal ideation or plan, but often wishes she would . She has not threatened any overt suicide thoughts. She does follow up in my office and also with Dr. Garcias. Her depression has been chronic, longstanding and resistant to therapy and medications. She is quite depressed right now about going to [facility]. She states that she knows she needs to go and she will go because she needs help with her medical problems. She will follow up in my office once she is discharged from the hospital and she will continue taking her antidepressant medications. DIAGNOSIS: Major depressive disorder, recurrent. RECOMMENDATIONS: 1. The patient should continue her antidepressant medications. 2. The patient should continue outpatient psychotherapy. Thank you very much for this consult. TORO ADAMS ED.D CM:CONSTR:REPORT OF CONSULTATION 1446 03/21/17 1503 interface
--- NOTE | ~2017-03-06 | PR ---
[place], [place] PROGRESS NOTE NAME: JACKIE VILLASENOR UNIT #: [id number] ROOM: [facility] DOCTOR: LYLA EVANS MD BIRTHDATE: [birth year] DOS: 03/09/2017 SUBJECTIVE: She has been noted comfortable at this time. The tracheostomy has been changed to cuffless trach resulting in significant improvement in the symptom, which is described as a choking by the patient. Coughing is improving. Shortness of breath has been gradually subsiding. She has been still treated with severe cellulitis of the lower extremities. OBJECTIVE: VITAL SIGNS: For the patient, which has been recorded showed the temperature noted as normal. The respiratory rate recorded at 20, heart rate 78, blood pressure 126/50-132/63. Pulse oxygen saturation of the patient noted as 35% oxygen at 98% saturation. HEENT: Shows head was atraumatic. Eyes nonicterus. NECK: Supple. CARDIOVASCULAR: S1, S2 audible. LUNGS: Without any crackles, rhonchi or wheezing. ABDOMEN: Soft, nontender. EXTREMITIES: Remains unchanged from previously. LABORATORY DATA: CBC: Hemoglobin 8.0, hematocrit 26.0, WBC count normal, platelet count was normal. BMP this morning was noted, glucose 167, BUN 11, creatinine was normal. IMPRESSION: 1. The patient with severe cellulitis of lower extremity with congestive heart failure superimposed, most likely diastolic dysfunction would be considered. 2. The patient with chronic respiratory failure, which has been noted stable at this time as well with a tracheostomy that remains in place. 3. History of past nicotine abuse. PLAN OF TREATMENT: Continue the current therapy, plan of management, bronchodilators, oxygen supplementation and other medical treatment. Discharge planning has been noted in progress with possibility of placement in the LTAC. [place], [place] PROGRESS NOTE NAME: JACKIE VILLASENOR UNIT #: [id number] ROOM: [facility] DOCTOR: LYLA EVANS MD BIRTHDATE: [birth year] LYLA CELESTIN MD CM:PNTRANS [id number] LYLA RICE MD 03/09/17 1336 interface
--- NOTE | ~2017-03-06 | PR ---
[place], [place] PROGRESS NOTE NAME: JACKIE VILLASENOR [facility] #: [id number] UNIT #: [id number] ROOM: 501 DOCTOR: TRACY LowryJULIO BIRTHDATE: [birth year] DOS: 03/09/2017 SUBJECTIVE: The patient reports that overall her leg is feeling better, but it is draining more than before. She said overall she is feeling better, and her breathing is better as well. OBJECTIVE: VITAL SIGNS: She has a temperature of 99, a pulse of 86, respirations 20, blood pressure is 120/59. SKIN: The wound had some strikethrough drainage noted on the Kerlix. The Tubigrip was not in place. I removed the dressing, and it looks a lot carbonating stone cleaner. The wound looks a lot carbonating stone cleaner than it did and also it looks smaller. The redness of the leg seems improved as well. She still has a fair amount of pitting edema noted, but it has some serous drainage. There is no odor, and it definitely looks a lot carbonating stone cleaner than it did last time I saw her. Her abdominal wound when I examined did not have the dressing that I had recommended. It looked like Telfa was applied. There was no Silver Rope that I had requested, and there may have been honey. It is not clear to me if that was on there or not. I could not see it, but there was just Telfa noted and was covered with an ABD pad. The patient did report that at times her colostomy bag gets loose, and she believes at times that the stool is getting into the wound. The wound itself does not appear any different to me. It still has some fibrin slough at the base of the wound, but the overall necrotic area in the middle part of the wound seems improved to me. ASSESSMENT AND PLAN: Venous leg ulceration secondary to poorly-controlled edema. Since the wound is cleaned up quite a bit and there is maceration noted, I would like to discontinue the honey and use an alginate that has been ordered and have her continue to use the Tubigrip for edema control. The cellulitis appears improved to me at this time. Her wound on her abdomen is a surgical wound, and unfortunately, the dressing that I had recommended was not in place when I examined the patient. I would continue to use some TheraHoney at the base of the wound where there is some minimal fibrin slough present, and I would also instead of using Aquacel AG use the Maxorb Silver to help absorb drainage. I think just one sheet could be utilized to loosely pack the area as well as cover the open part where the epidermis is sloughed off and just continue to use that for bioburden control and absorption of drainage. I would prefer to also keep it covered with a foam dressing, especially if she is getting stool contamination as an ABD pad will not prevent this from happening. The patient is planning to be going to an LTAC when a bed is available, and I have written orders for wound care to be done there. Most likely, they will have their own wound care program; however, if they do not, she should follow up in the wound care center if wound care is not available for her there. [place], [place] PROGRESS NOTE NAME: JACKIE VILLASENOR UNIT #: [id number] ROOM: [facility] DOCTOR: JULIO MOLINA M.D. BIRTHDATE: [birth year] JULIO MOLINA MD CM:JOSE [phone] JULIO MOLINA M.D. 03/09/171831 interface
--- NOTE | ~2017-03-06 | PR ---
[place], [place] PROGRESS NOTE NAME: JACKIE VILLASENOR [facility] #: [id number] UNIT #: [id number] ROOM: 501 DOCTOR: TRACY LowryJULIO BIRTHDATE: [birth year] DOS: 03/07/2017 WOUND CARE CONSULTATION HISTORY OF PRESENT ILLNESS: This is a 66-year-old female known to me from the past for diabetic ulcers; however, we have not seen her in the Wound Clinic for several months now. Apparently, she had received a colostomy at [facility] for diverticulitis. She developed breathing difficulty and had a tracheostomy placed. She follows with Dr. Kothari for trach care. She also has a history of IgG deficiency and follows with Dr. Rios for this. She comes in to the [facility] Department [facility] for complaints of increase in generalized abdominal pain, nausea over the past 2 days and worsening shortness of breath as well as increased swelling of her lower extremities and increased redness of her left lower extremity. She has some drainage secondary to the wound on her left anterior leg. She was started on Keflex for cellulitis approximately 4 days ago. She also has a PEG tube placement. PAST MEDICAL HISTORY: Significant for multiple medical problems, which include the following: History of anxiety, history of depression, arthritis, asthma, COPD, bowel perforation, chronic kidney disease, emphysema, COPD with exacerbation, diabetes mellitus, diabetic neuropathy, diastolic congestive heart failure, failure of outpatient treatment, GERD, history of skin cancer, hypertension, hyperglycemia, hyperlipidemia, IgG deficiency, insomnia, irritable bowel syndrome, leukocytosis, migraine headaches, oxygen dependent, protein calorie malnutrition, pulmonary infarction, seasonal allergies, sepsis, type 2 diabetes and urinary incontinence, vitamin D deficiency. She has had admissions before for cellulitis. I believe the last time she had a bout of this was back in August. It took quite a while for her to heal and to improve. She has also had diabetic foot ulcers that have been chronic and difficult to heal. SURGICAL HISTORY: She has a closed fracture of the distal clavicle, hernia repair, hysterectomy, and amputation of the lesser toe of the right foot, cholecystectomy, status post incision and drainage of her right thumb for osteomyelitis. She has had right thumb distal phalanx excision, status post left foot surgery, rotator cuff repair. She had a cardiac catheterization done in 2012 and a stress test as well. SOCIAL HISTORY: She denies alcohol use. She is a smoker, half pack per day. Denies illicit drug use. ALLERGIES: SULFA, CODEINE AND TAPE. FAMILY HISTORY: Significant for COPD and cardiac disease, cerebral infarction in her father, coronary artery disease and stroke in her mother. REVIEW OF SYSTEMS: She complains of generalized abdominal pain, discomfort of her leg swelling, erythema. No fevers or chills. She complains of shortness of breath. She has an obvious productive cough. She is eating by mouth and not through the PEG tube. Her other review of systems are negative for fevers, [place], [place] PROGRESS NOTE NAME: JACKIE VILLASENOR UNIT #: [id number] ROOM: [facility] DOCTOR: JULIO MOLINA M.D. BIRTHDATE: [birth year] chills, weight loss or weight change. Denies diarrhea or constipation, dysuria, hematuria. She denies lightheadedness. There are no other specific complaints reported. CURRENT MEDICATIONS: Potassium 25 mEq daily, Pepcid 20 daily, Lovenox 40 subq daily, Cymbalta 60 daily, vitamin D 5000 units daily, vancomycin 1500 q.12, Levemir b.i.d. subq, Cardizem 90 mg q.12 hours, Coreg 25 p.o. q.12., BuSpar 10 mg b.i.d., Zosyn 3.375 IV q.6, Colace 100 twice a day, Peridex 15 mL b.i.d., Lac-Hydrin t.i.d., Ativan 1 mg t.i.d., Humalog sliding scale, milk of magnesia daily, Levaquin 750 IV daily, albuterol nebs q.4 hours, Pulmicort 0.5 q.12., morphine 2 mg IV q.4 hours, [place] one tablet q.4 hours p.r.n. PHYSICAL EXAMINATION: VITAL SIGNS: Temperature is 97.9, pulse is 104, respirations 20, blood pressure is 150/60. GENERAL:. The patient is alert. She is able to communicate by putting her finger over her trach tube. She has obvious rhonchorous cough and productive, but in no acute respiratory distress. She does complain of a lot of fatigue as well and appears quite debilitated and much older than her stated age. HEENT: Extraocular movements are intact. Sclerae are anicteric. NECK: There is no JVD. LUNGS: Have decreased breath sounds in the bases. CARDIOVASCULAR: S1, S2 regular rate and rhythm. Systolic murmur appreciable. ABDOMEN: Obese, positive bowel sounds, soft and is diffusely mildly tender. There is no guarding or rebound. She has a colostomy placement and open wound of the abdomen that is quite large, approximately 5 cm in length x 2 cm in width and there is a small opening, definitely way deep in there, that is at least 0.8 cm. There is some visible necrotic tissue. There is minimal undermining for a maximum depth of 0.5 to 0.8. There is really no tunneling and it does not appear to be cellulitic and there is no purulent drainage. EXTREMITIES: She has edema bilaterally that is pitting with chronic erythema. The left leg is slightly more erythematous than the right, and she complains of tenderness, it is warm. There is a small superficial wound present that has some minimal fibrin slough, it is fairly superficial however. It is mostly secondary to uncontrolled edema. It is approximately 2-3 cm in length by 1 cm in width. There is really no depth to it. NEUROLOGIC: She moves all 4 extremities equally. LABORATORY DATA: Her white count is 7.5, hemoglobin is 8.4, platelets are 297. Glucose was 145, BUN is 8, creatinine 0.59, sodium 141. Hemoglobin A1c is 7.6, alkaline phosphatase is 10. Albumin is low at 2.4. Chest x-ray shows chronic interstitial lung disease. Abdomen and pelvic CT shows no definite acute process, postop changes along the anterior pelvic wall with surrounding inflammatory change and phlegmonous drainage, no drainable fluid collection. Findings may be secondary to cellulitis. ASSESSMENT AND PLAN: Chronic ulceration of the left lower extremity secondary to probable venous insufficiency and diabetes. At this point, I would use TheraHoney and Versatel and have them change it daily and use Tubigrip for edema [place], [place] PROGRESS NOTE NAME: JACKIE VILLASENOR UNIT #: [id number] ROOM: [facility] DOCTOR: JULIO MOLINA M.D. BIRTHDATE: [birth year] control and we will continue to follow her. As she has a postop abdominal wound, at this point I would use TheraHoney and Maxorb silver to help with bioburden control and I think this wound may take some time to heal and if she would like to follow up in the Wound Clinic on a weekly basis, we would be glad to see her. JULIO MOLINA MD CM:PNTRANS [phone] JULIO MOLINA M.D. 03/07/17 2332 interface
--- NOTE | ~2017-03-06 | PR ---
[place], [place] PROGRESS NOTE NAME: [id number] UNIT #: [id number] ROOM: 501 DOCTOR: BLANCA PALACIOS MD BIRTHDATE: [birth year] DOS: 03/08/2017 SUBJECTIVE: The patient is doing better. She is alert and responsive. PHYSICAL EXAMINATION: GENERAL: Pleasant woman in no apparent distress. VITAL SIGNS: Stable. She is afebrile. HEENT: Normocephalic, atraumatic NECK AND THYROID: Supple. No JVD, thyromegaly, or lymphadenopathy. HEART: Normal S1, S2. Regular rate and rhythm. LUNGS: Clear to auscultation and percussion. ABDOMEN: Soft. Nontender, nondistended. Bowel sounds present. EXTREMITIES: Normal ROM. No clubbing. No edema. LABORATORY DATA: White count of 7.5, hemoglobin 8.4, hematocrit 26.7, platelet count 297. Chemistries: BUN of 8, EGFR is more than 60, sodium 143, potassium 3.8, chloride 108, bicarbonate 26, calcium 8.6. ASSESSMENT: 1. Cellulitis of both lower extremities. 2. Respiratory failure. 3. Pneumonitis. 4. Immunodeficiency. 5. Anemia probably of chronic disease. PLAN: We will continue broad spectrum antibiotics. We will wait for overall condition to improve. We will be also checking immunoglobulin levels depending on that further intervention discussed with the patient in detail. BLANCA PALACIOS MD CM:PNTRANS [id number] BLANCA PALACIOS MD 03/08/17 1026 interface
--- NOTE | ~2017-03-06 | PR ---
[place], [place] PROGRESS NOTE NAME: [facility]OR [id number] UNIT #: [id number] ROOM: 501 DOCTOR: FAWAD RICE MD,LYLA BIRTHDATE: [birth year] DOS: 03/08/2017 SUBJECTIVE: She has been noted comfortable at this time, has Passy-Kalie valve in place with a tracheostomy in place. She has not been noted much cough. She has been treated for cellulitis of lower extremities. Denies symptoms of chest pain or any abdominal pain. OBJECTIVE: VITAL SIGNS: For the patient, which has been recorded showed the temperature noted normal, respiratory rate 18, heart rate 83, blood pressure 148/47. HEENT: Showed no acute change. NECK: Supple. CARDIOVASCULAR: S1, S2 is audible. LUNGS: The patient was noted without any wheeze or crackles. ABDOMEN: Soft, nontender. EXTREMITIES: Shows previous changes of cellulitis, remains unchanged. LABORATORY DATA: Vancomycin trough level was noted at 15.4. IMPRESSION: 1. The patient with cellulitis of bilateral lower extremity, permanent tracheostomy patient, which has been noted with chronic hypoxic respiratory failure as well. 2. History of chronic obesity. 3. Past history of nicotine abuse. PLAN OF TREATMENT: Continue the patient's current plan of management at this time without changes. Continuation of bronchodilator with oxygen supplementation with supportive plan of therapy. Usual care. All other supportive plan of management and treatments. Bronchodilators. LYLA CELESTIN MD CM:PNTRANS [phone] LYLA RICE MD 03/08/17 1325 interface
[2017-03-06 10:12] VITALS: BP 108/58
[2017-03-06] MEDS ORDERED: BUSPAR5 MG PO ×2 (10:34→10:37)
[2017-03-06] MEDS ORDERED: ATIVAN1 MG PO (10:37)
[2017-03-06] MEDS ORDERED: COREG25 MG PO (10:38)
[2017-03-06] MEDS ORDERED: CARDIZEM60 MG PO (10:38)
[2017-03-06] MEDS ORDERED: CYMBALTA60 MG PO (10:38)
[2017-03-06] MEDS ORDERED: VITAMIN D5000 I3 PO (10:38)
[2017-03-06] MEDS ORDERED: COLACE100 MG PO (10:39)
[2017-03-06] MEDS ORDERED: DULCOLAX10 M1 RC (10:39)
[2017-03-06] MEDS ORDERED: HUMALOG100 UNIT/2 SQ (10:41)
[2017-03-06] MEDS ORDERED: KEFLEX500 M1 PO (10:41)
[2017-03-06] MEDS ORDERED: LANTUS100 U/ML SC (10:42)
[2017-03-06] MEDS ORDERED: MILK OF MA400 MG/5 M PO (10:43)
[2017-03-06] MEDS ORDERED: HYDROCODONE BIT1 T11 PO (10:43)
[2017-03-06] MEDS ORDERED: PEPCID20 MG PO (10:44)
[2017-03-06] MEDS ORDERED: K-EFFERVESCENT25 MEQ PO (10:44)
[2017-03-06] MEDS ORDERED: PROVENTIL0.09 MG/A1 INH (10:45)
[2017-03-06] MEDS ORDERED: Peridex 473 ML473 ML PO (10:46)
[2017-03-06] MEDS ORDERED: ZOFRAN4 MG PO (10:46)
[2017-03-06] MEDS ORDERED: PULMICORT RESP0.5 MG INH (10:46)
[2017-03-06] MEDS ORDERED: TYLENOL325 M2 PO (10:46)
[2017-03-06 10:51] LABS: BASO % 0.3 % (0.0-1.0); EOS # 0.4 10*3/uL (0.0-0.4); EOS % 3.8 % (1.0-4.0); HEMATOCRIT 28.1 % (37.0-47.0); HEMOGLOBIN 8.9 g/dl (12.0-16.0); LYMPH # 2.7 10*3/uL (1.3-4.4); LYMPH % 27.7 % (27.0-41.0); MEAN CELL VOLUME 91.8 fl (81.0-99.0); MEAN CORPUSCULAR HGB 29.1 pg (27.0-31.0); MEAN CORPUSCULAR HGB CONC 31.7 g/dl (33.0-37.0); MEAN PLATELET VOLUME 8.9 fl (9.6-12.3); MONO # 1.1 10*3/uL (0.1-1.0); MONO % 11.3 % (3.0-9.0); NEUT # 5.6 10*3/uL (2.3-7.9); NEUT % 56.7 % (47.0-73.0); PLATELET COUNT AUTOMATED 341 10*3/uL (130-400); RED BLOOD COUNT 3.06 10*6/uL (4.10-5.10); RED CELL DISTRI WIDTH 14.2 % (0-14.5); WHITE BLOOD COUNT 9.8 10*3/uL (4.8-10.8)
[2017-03-06 11:01] LABS: PROTHROMBIN TIME 10.7 SECONDS (9.0-12.4)
[2017-03-06 11:08] LABS: ALBUMIN 2.7 gm/dl (3.1-4.5); ALKALINE PHOSPHATASE 92 U/L (45-117); BILIRUBIN, TOTAL 0.2 mg/dl (0.2-1.0); BUN 5 mg/dl (7-24); CARBON DIOXIDE 27 mmol/L (21-32); CHLORIDE 101 mmol/L (98-107); EST GLOM FILT AFRICAN AMERICAN > 60 ml/min; GLUCOSE 158 mg/dL (65-99); MAGNESIUM 1.7 mg/dL (1.5-2.1); POTASSIUM 3.9 mmol/L (3.5-5.1); SGOT/AST 11 IU/L (3-35); SGPT/ALT 12 U/L (12-78); SODIUM 137 mmol/L (136-145)
[2017-03-06 11:10] LABS: TROPONIN I < 0.015 ng/ml (<0.045)
[2017-03-06 13:35] VITALS: BP 130/47
[2017-03-06] MEDS ORDERED: LAC CREAM12% TP (13:54)
[2017-03-06] MEDS ORDERED: BROVANA15 MCG/2 M NEB (14:13)
[2017-03-06 16:00] VITALS: BP 140/46
[2017-03-06 18:02] LABS: CKMB 0.6 ng/ml (0.5-3.6)
[2017-03-06 20:00] VITALS: BP 129/51
[2017-03-07] VITALS: BP 147/50
[2017-03-07 00:54] LABS: CPK 32 U/L (26-192)
[2017-03-07 00:55] LABS: CKMB < 0.5 ng/ml (0.5-3.6)
[2017-03-07 06:09] LABS: BASO % 0.3 % (0.0-1.0); EOS # 0.5 10*3/uL (0.0-0.4); EOS % 7.1 % (1.0-4.0); HEMATOCRIT 26.7 % (37.0-47.0); HEMOGLOBIN 8.4 g/dl (12.0-16.0); LYMPH # 2.2 10*3/uL (1.3-4.4); LYMPH % 28.8 % (27.0-41.0); MEAN CELL VOLUME 92.7 fl (81.0-99.0); MEAN CORPUSCULAR HGB 29.2 pg (27.0-31.0); MEAN CORPUSCULAR HGB CONC 31.5 g/dl (33.0-37.0); MEAN PLATELET VOLUME 8.8 fl (9.6-12.3); MONO # 0.9 10*3/uL (0.1-1.0); NEUT # 3.9 10*3/uL (2.3-7.9); NEUT % 51.5 % (47.0-73.0); PLATELET COUNT AUTOMATED 297 10*3/uL (130-400); RED BLOOD COUNT 2.88 10*6/uL (4.10-5.10); RED CELL DISTRI WIDTH 14.2 % (0-14.5); WHITE BLOOD COUNT 7.5 10*3/uL (4.8-10.8)
[2017-03-07 06:24] LABS: ALBUMIN 2.4 gm/dl (3.1-4.5); ALKALINE PHOSPHATASE 79 U/L (45-117); BILIRUBIN, TOTAL 0.2 mg/dl (0.2-1.0); BUN 8 mg/dl (7-24); CARBON DIOXIDE 26 mmol/L (21-32); CHLORIDE 108 mmol/L (98-107); CHOLESTEROL 172 mg/dL (<200); EST GLOM FILT AFRICAN AMERICAN > 60 ml/min; GLUCOSE 145 mg/dL (65-99); MAGNESIUM 1.9 mg/dL (1.5-2.1); PHOSPHOROUS 4.3 mg/dL (2.5-4.9); POTASSIUM 3.8 mmol/L (3.5-5.1); SGOT/AST 12 IU/L (3-35); SGPT/ALT 10 U/L (12-78); SODIUM 143 mmol/L (136-145); TOTAL PROTEIN 6.5 gm/dL (6.4-8.2); TRIGLYCERIDES 141 mg/dl (<150); VLDL CHOLESTEROL 28 mg/dL (6-40)
[2017-03-07 06:25] LABS: CPK 27 U/L (26-192)
[2017-03-07 06:26] LABS: HDL CHOLESTEROL 38 mg/dl (40-60); LDL CHOLESTEROL 106 mg/dL (9-159)
[2017-03-07 06:32] LABS: CKMB < 0.5 ng/ml (0.5-3.6)
[2017-03-07 07:23] LABS: HEMOGLOBIN A1c 7.6 % (4.8-5.6)
[2017-03-07 07:27] LABS: FOLIC ACID 12.23 ng/mL (>5.38); VITAMIN D, 25-HYDROXY 35.8 ng/mL (30-100)
[2017-03-07 08:00] VITALS: BP 145/49
[2017-03-07 12:00] VITALS: BP 150/60
[2017-03-07 16:00] VITALS: BP 124/56
[2017-03-07 20:00] VITALS: BP 159/75
[2017-03-08] VITALS: BP 137/52
[2017-03-08 08:00] VITALS: BP 148/47
[2017-03-08 12:00] VITALS: BP 134/46
[2017-03-08 16:00] VITALS: BP 139/46
[2017-03-08 20:00] VITALS: BP 143/44
[2017-03-09] VITALS: BP 132/63
[2017-03-09 06:54] LABS: BASO % 0.3 % (0.0-1.0); EOS # 0.7 10*3/uL (0.0-0.4); EOS % 8.6 % (1.0-4.0); LYMPH # 2.4 10*3/uL (1.3-4.4); LYMPH % 31.4 % (27.0-41.0); MEAN CELL VOLUME 93.5 fl (81.0-99.0); MEAN CORPUSCULAR HGB 28.8 pg (27.0-31.0); MEAN CORPUSCULAR HGB CONC 30.8 g/dl (33.0-37.0); MEAN PLATELET VOLUME 9.4 fl (9.6-12.3); MONO # 0.9 10*3/uL (0.1-1.0); MONO % 11.5 % (3.0-9.0); NEUT # 3.6 10*3/uL (2.3-7.9); NEUT % 47.8 % (47.0-73.0); PLATELET COUNT AUTOMATED 312 10*3/uL (130-400); RED BLOOD COUNT 2.78 10*6/uL (4.10-5.10); WHITE BLOOD COUNT 7.6 10*3/uL (4.8-10.8)
[2017-03-09 07:41] LABS: BUN 11 mg/dl (7-24); CARBON DIOXIDE 25 mmol/L (21-32); CHLORIDE 105 mmol/L (98-107); EST GLOM FILT AFRICAN AMERICAN > 60 ml/min; GLUCOSE 167 mg/dL (65-99); POTASSIUM 3.7 mmol/L (3.5-5.1); SODIUM 141 mmol/L (136-145)
[2017-03-09 08:00] VITALS: BP 126/50
[2017-03-09 12:00] VITALS: BP 126/50
[2017-03-09 16:00] VITALS: BP 120/59
[2017-03-09 20:00] VITALS: BP 150/60
[2017-03-10] VITALS: BP 150/51
[2017-03-10 06:10] LABS: BASO % 0.3 % (0.0-1.0); EOS # 0.6 10*3/uL (0.0-0.4); HEMATOCRIT 27.6 % (37.0-47.0); HEMOGLOBIN 8.5 g/dl (12.0-16.0); LYMPH # 2.7 10*3/uL (1.3-4.4); LYMPH % 31.3 % (27.0-41.0); MEAN CELL VOLUME 92.9 fl (81.0-99.0); MEAN CORPUSCULAR HGB 28.6 pg (27.0-31.0); MEAN CORPUSCULAR HGB CONC 30.8 g/dl (33.0-37.0); MEAN PLATELET VOLUME 9.4 fl (9.6-12.3); MONO % 10.9 % (3.0-9.0); NEUT # 4.4 10*3/uL (2.3-7.9); NEUT % 50.3 % (47.0-73.0); PLATELET COUNT AUTOMATED 330 10*3/uL (130-400); RED BLOOD COUNT 2.97 10*6/uL (4.10-5.10); WHITE BLOOD COUNT 8.7 10*3/uL (4.8-10.8)
[2017-03-10 08:00] VITALS: BP 151/55
[2017-03-10] MEDS ORDERED: BUSPIRONE HCL10 MG PO (09:51)
[2017-03-10] MEDS ORDERED: ZOSYN 50 ML50 ML IV (09:51)
[2017-03-10] MEDS ORDERED: DUONEB 3 MG/3 ML3 M1 NEB (09:51)
[2017-03-10] MEDS ORDERED: HUMALOG100 U/ML SC (09:51)
[2017-03-10] MEDS ORDERED: LEVOFLOXAC25 MG/1 ML IV (09:51)
[2017-03-10] MEDS ORDERED: VANCOMYCIN HYD IV (09:52)
[2017-03-10 12:00] VITALS: BP 153/55
[2017-03-19] MEDS ORDERED: LEVEMIR10 ML SC ×2 (18:11→18:12)
[2017-03-19] MEDS ORDERED: BENTYL10 MG PO (18:13)
[2017-03-19] MEDS ORDERED: SYMBICORT1 AE1 INH (18:14)
[2017-03-19] MEDS ORDERED: Klor-Con/Ef25 MEQ PO (18:15)
[2017-03-19] MEDS ORDERED: VITAMIN D32000 UNI1 PO (18:17)
[2017-03-19] MEDS ORDERED: PEPCID20 MG PO (18:18)
[2017-03-19] MEDS ORDERED: ATIVAN1 MG PO (21:37)
[2017-03-19] MEDS ORDERED: TRAMADOL HCL50 MG PO (21:40)
[2017-03-19] MEDS ORDERED: AUGMENTIN 500 M1 TAB PO (21:41)
[2017-03-23] MEDS ORDERED: DOXYCYCLINE MO100 M1 PO (10:06)
[2017-03-23] MEDS ORDERED: PREDNISONE10 MG PO (10:06)
[2017-03-23] MEDS ORDERED: LEVEMIR10 ML SC ×4 (10:06→10:08)
[2017-03-23] MEDS ORDERED: OXYGEN NAS (10:07)
== END 2017-03-10 13:15 | DRG 871 ==
LOC: ED 10:12 → 5E 12:12 → EDHOLD 12:12 → 5E 12:20
PROVIDERS: Hospitalist; Internal Medicine; Nurse Practitioner Family
PROC: 0B21XFZ Change Tracheostomy Device in Trachea, External Approach (ICD-10-PCS; principal; 2017-03-08)
DX: A41.9 Sepsis, unspecified organism (principal); J18.9 Pneumonia, unspecified organism; E43 Unspecified severe protein-calorie malnutrition; I13.0 Hypertensive heart and chronic kidney disease with heart failure and stage 1 through stage 4 chronic kidney disease, or unspecified chronic kidney disease; D80.3 Selective deficiency of immunoglobulin G [IgG] subclasses; I50.32 Chronic diastolic (congestive) heart failure; E11.22 Type 2 diabetes mellitus with diabetic chronic kidney disease; J96.11 Chronic respiratory failure with hypoxia; L03.116 Cellulitis of left lower limb; L03.115 Cellulitis of right lower limb; J44.0 Chronic obstructive pulmonary disease with (acute) lower respiratory infection; J44.1 Chronic obstructive pulmonary disease with (acute) exacerbation; F33.9 Major depressive disorder, recurrent, unspecified; N18.3 Chronic kidney disease, stage 3 (moderate); E11.65 Type 2 diabetes mellitus with hyperglycemia; D53.9 Nutritional anemia, unspecified; E66.9 Obesity, unspecified; M19.90 Unspecified osteoarthritis, unspecified site; D63.8 Anemia in other chronic diseases classified elsewhere; I25.10 Atherosclerotic heart disease of native coronary artery without angina pectoris; K21.9 Gastro-esophageal reflux disease without esophagitis; E78.5 Hyperlipidemia, unspecified; Z96.611 Presence of right artificial shoulder joint; F41.1 Generalized anxiety disorder; G43.909 Migraine, unspecified, not intractable, without status migrainosus; G25.81 Restless legs syndrome; E11.40 Type 2 diabetes mellitus with diabetic neuropathy, unspecified; Z99.81 Dependence on supplemental oxygen; Z90.710 Acquired absence of both cervix and uterus; Z90.49 Acquired absence of other specified parts of digestive tract; Z89.421 Acquired absence of other right toe(s); Z82.3 Family history of stroke; Z82.49 Family history of ischemic heart disease and other diseases of the circulatory system; Z88.2 Allergy status to sulfonamides; Z88.5 Allergy status to narcotic agent; Z91.048 Other nonmedicinal substance allergy status; Z79.1 Long term (current) use of non-steroidal anti-inflammatories (NSAID); Z79.4 Long term (current) use of insulin; Z79.899 Other long term (current) drug therapy; Z85.828 Personal history of other malignant neoplasm of skin; Z83.6 Family history of other diseases of the respiratory system; Z87.891 Personal history of nicotine dependence; Z68.37 Body mass index [BMI] 37.0-37.9, adult

== ENCOUNTER 2017-03-24 11:56 | Inpatient (IN) | payer MEDICARE ==
[~2017-03-24] VITALS: Ht 157 cm; Wt 91.3 kg
[~2017-03-24 11:56] MED LIST changes: +AUGMENTIN 500 M1 TAB PO; +BENTYL10 MG PO; +BROVANA15 MCG/2 M NEB; +BUSPAR5 MG PO; +BUSPIRONE HCL10 MG PO; +CARDIZEM60 MG PO; +COLACE100 MG PO; +DOXYCYCLINE MO100 M1 PO; +DULCOLAX10 M1 RC; +DUONEB 3 MG/3 ML3 M1 NEB; +HUMALOG100 UNIT/2 SQ; +K-EFFERVESCENT25 MEQ PO; +KEFLEX500 M1 PO; +Klor-Con/Ef25 MEQ PO; +LAC CREAM12% TP; +LEVEMIR10 ML SC; +LEVOFLOXAC25 MG/1 ML IV; +MILK OF MA400 MG/5 M PO; +OXYGEN NAS; +PEPCID20 MG PO; +PROVENTIL0.09 MG/A1 INH; +PULMICORT RESP0.5 MG INH; +Peridex 473 ML473 ML PO; +TYLENOL325 M2 PO; +VANCOMYCIN HYD IV; +VITAMIN D32000 UNI1 PO; +ZOSYN 50 ML50 ML IV
[2017-03-24 12:05] VITALS: BP 155/59
[2017-03-24 13:30] VITALS: BP 176/65
[2017-03-24 16:00] VITALS: BP 139/94
[2017-03-24 20:00] VITALS: BP 157/71
[2017-03-24] MEDS ORDERED: REQUIP4 MG PO (22:50)
[2017-03-25] VITALS: BP 164/67
[2017-03-25 04:00] VITALS: BP 155/78
[2017-03-25 06:22] LABS: BASO % 0.1 % (0.0-1.0); HEMATOCRIT 30.2 % (37.0-47.0); HEMOGLOBIN 9.8 g/dl (12.0-16.0); IG # 0.1 10*3/uL (0.0-0.1); LYMPH # 1.1 10*3/uL (1.3-4.4); MEAN CORPUSCULAR HGB 28.2 pg (27.0-31.0); MEAN CORPUSCULAR HGB CONC 32.5 g/dl (33.0-37.0); MEAN PLATELET VOLUME 9.7 fl (9.6-12.3); MONO # 0.5 10*3/uL (0.1-1.0); MONO % 3.9 % (3.0-9.0); NEUT # 10.5 10*3/uL (2.3-7.9); NEUT % 86.1 % (47.0-73.0); PLATELET COUNT AUTOMATED 405 10*3/uL (130-400); RED BLOOD COUNT 3.47 10*6/uL (4.10-5.10); RED CELL DISTRI WIDTH 13.4 % (0-14.5); WHITE BLOOD COUNT 12.2 10*3/uL (4.8-10.8)
[2017-03-25 06:46] LABS: ALBUMIN 2.9 gm/dl (3.1-4.5); ALKALINE PHOSPHATASE 64 U/L (45-117); BILIRUBIN, TOTAL 0.3 mg/dl (0.2-1.0); BUN 28 mg/dl (7-24); CARBON DIOXIDE 30 mmol/L (21-32); CHLORIDE 96 mmol/L (98-107); EST GLOM FILT AFRICAN AMERICAN > 60 ml/min; GLUCOSE 217 mg/dL (65-99); MAGNESIUM 2.2 mg/dL (1.5-2.1); PHOSPHOROUS 2.8 mg/dL (2.5-4.9); POTASSIUM 3.8 mmol/L (3.5-5.1); SGOT/AST 7 IU/L (3-35); SGPT/ALT 13 U/L (12-78); SODIUM 135 mmol/L (136-145); TOTAL PROTEIN 6.6 gm/dL (6.4-8.2)
[2017-03-25 06:52] LABS: THYROID STIM HORMONE (HS) 0.821 uIU/ml (0.358-4.75)
[2017-03-25 08:00] VITALS: BP 164/80
[2017-03-25 12:00] VITALS: BP 162/64
[2017-03-25 16:00] VITALS: BP 155/73
[2017-03-25 20:00] VITALS: BP 160/72
[2017-03-26] VITALS: BP 160/80
[2017-03-26 06:10] LABS: BASO % 0.1 % (0.0-1.0); HEMOGLOBIN 9.9 g/dl (12.0-16.0); IG # 0.1 10*3/uL (0.0-0.1); LYMPH # 1.1 10*3/uL (1.3-4.4); LYMPH % 9.7 % (27.0-41.0); MEAN CELL VOLUME 87.2 fl (81.0-99.0); MEAN CORPUSCULAR HGB 28.8 pg (27.0-31.0); MEAN PLATELET VOLUME 9.6 fl (9.6-12.3); MONO # 0.5 10*3/uL (0.1-1.0); MONO % 4.6 % (3.0-9.0); NEUT # 9.3 10*3/uL (2.3-7.9); NEUT % 84.8 % (47.0-73.0); PLATELET COUNT AUTOMATED 390 10*3/uL (130-400); RED BLOOD COUNT 3.44 10*6/uL (4.10-5.10); RED CELL DISTRI WIDTH 13.8 % (0-14.5)
[2017-03-26 06:25] LABS: BUN 19 mg/dl (7-24); CARBON DIOXIDE 28 mmol/L (21-32); CHLORIDE 97 mmol/L (98-107); GLUCOSE 168 mg/dL (65-99); POTASSIUM 3.9 mmol/L (3.5-5.1); SODIUM 135 mmol/L (136-145)
[2017-03-26 06:27] LABS: EST GLOM FILT AFRICAN AMERICAN > 60 ml/min
[2017-03-26 06:29] LABS: MAGNESIUM 2.1 mg/dL (1.5-2.1)
[2017-03-26 08:00] VITALS: BP 153/61
[2017-03-26 12:00] VITALS: BP 170/71
[2017-03-26 16:00] VITALS: BP 158/58
[2017-03-26 20:00] VITALS: BP 160/72
[2017-03-27] VITALS: BP 160/70
[2017-03-27 06:26] LABS: BASO % 0.1 % (0.0-1.0); HEMATOCRIT 30.9 % (37.0-47.0); HEMOGLOBIN 10.2 g/dl (12.0-16.0); IG # 0.2 10*3/uL (0.0-0.1); LYMPH # 0.9 10*3/uL (1.3-4.4); LYMPH % 6.2 % (27.0-41.0); MEAN CORPUSCULAR HGB 29.1 pg (27.0-31.0); MEAN PLATELET VOLUME 9.8 fl (9.6-12.3); MONO # 0.5 10*3/uL (0.1-1.0); MONO % 3.7 % (3.0-9.0); NEUT % 88.8 % (47.0-73.0); PLATELET COUNT AUTOMATED 377 10*3/uL (130-400); RED BLOOD COUNT 3.51 10*6/uL (4.10-5.10); RED CELL DISTRI WIDTH 13.7 % (0-14.5); WHITE BLOOD COUNT 14.6 10*3/uL (4.8-10.8)
[2017-03-27 06:41] LABS: ALBUMIN 2.7 gm/dl (3.1-4.5); ALKALINE PHOSPHATASE 56 U/L (45-117); BILIRUBIN, TOTAL 0.3 mg/dl (0.2-1.0); BUN 24 mg/dl (7-24); CARBON DIOXIDE 29 mmol/L (21-32); CHLORIDE 96 mmol/L (98-107); EST GLOM FILT AFRICAN AMERICAN > 60 ml/min; GLUCOSE 275 mg/dL (65-99); MAGNESIUM 2.1 mg/dL (1.5-2.1); POTASSIUM 4.1 mmol/L (3.5-5.1); SGOT/AST 5 IU/L (3-35); SGPT/ALT 12 U/L (12-78); SODIUM 134 mmol/L (136-145)
[2017-03-27 08:00] VITALS: BP 190/70
[2017-03-27 09:56] VITALS: BP 178/70
[2017-03-27 12:00] VITALS: BP 161/64
[2017-03-27 16:00] VITALS: BP 160/58
[2017-03-27 20:00] VITALS: BP 171/63
[2017-03-27 21:21] LABS: BILIRUBIN NEGATIVE (NEGATIVE); BLOOD 1+ (NEGATIVE); CLARITY SL CLOUDY (CLEAR); COLOR YELLOW (YELLOW); GLUCOSE 3+ (NEGATIVE); KETONE NEGATIVE (NEGATIVE); LEUKO ESTERASE NEGATIVE (NEGATIVE); NITRITE NEGATIVE (NEGATIVE); PROTEIN 3+ (NEGATIVE); SPECIFIC GRAVITY 1.015 (1.005-1.030); UROBILINOGEN 0.2 E.U./dl (0.2-1.0)
[2017-03-27 21:26] LABS: BACTERIA 1+; URINE REFLEX COMMENT YES (NO); WBC TNTC wbc/hpf (0-5)
[2017-03-28] VITALS: BP 179/67
[2017-03-28 04:00] VITALS: BP 172/66
[2017-03-28 07:04] LABS: HEMATOCRIT 32.9 % (37.0-47.0); HEMOGLOBIN 10.6 g/dl (12.0-16.0); MEAN CORPUSCULAR HGB 28.3 pg (27.0-31.0); MEAN CORPUSCULAR HGB CONC 32.2 g/dl (33.0-37.0); MEAN PLATELET VOLUME 9.4 fl (9.6-12.3); PLATELET COUNT AUTOMATED 374 10*3/uL (130-400); RED BLOOD COUNT 3.74 10*6/uL (4.10-5.10); RED CELL DISTRI WIDTH 13.7 % (0-14.5); WHITE BLOOD COUNT 14.2 10*3/uL (4.8-10.8)
[2017-03-28 07:17] LABS: ALBUMIN 2.7 gm/dl (3.1-4.5); ALKALINE PHOSPHATASE 58 U/L (45-117); BILIRUBIN, TOTAL 0.3 mg/dl (0.2-1.0); BUN 23 mg/dl (7-24); CARBON DIOXIDE 31 mmol/L (21-32); CHLORIDE 94 mmol/L (98-107); EST GLOM FILT AFRICAN AMERICAN > 60 ml/min; GLUCOSE 295 mg/dL (65-99); POTASSIUM 3.9 mmol/L (3.5-5.1); SGOT/AST 10 IU/L (3-35); SGPT/ALT 14 U/L (12-78); SODIUM 133 mmol/L (136-145); TOTAL PROTEIN 5.9 gm/dL (6.4-8.2)
[2017-03-28 07:21] LABS: LYMPHOCYTE # 0.4 10*3/uL (1.3-4.4); MONOCYTE # 0.1 10*3/uL (0.1-1.0); MYELOCYTES 1 % (0-0); NEUTROPHIL # 13.5 10*3/uL (2.3-7.9); NEUTROPHILS 95 % (47-73); TOTAL CELLS COUNTED 100 #CELLS
[2017-03-28 07:22] LABS: PLATELET SUFFICIENCY NORMAL (NORMAL); POLYCHROMASIA SLIGHT; TOXIC GRANULATION SLIGHT
[2017-03-28 08:00] VITALS: BP 169/65
[2017-03-28] MEDS ORDERED: NOVAPLUS SOLU-125 MG IV (11:45)
== END 2017-03-28 12:01 | DRG 393 ==
LOC: ED 11:56 → EDHOLD 12:32 → 5E 12:32
PROVIDERS: Emergency Medicine; Family Medicine; Hospitalist
PROC: 0D20XUZ Change Feeding Device in Upper Intestinal Tract, External Approach (ICD-10-PCS; principal; 2017-03-25)
DX: K94.23 Gastrostomy malfunction (principal); E43 Unspecified severe protein-calorie malnutrition; J96.10 Chronic respiratory failure, unspecified whether with hypoxia or hypercapnia; E11.22 Type 2 diabetes mellitus with diabetic chronic kidney disease; D80.3 Selective deficiency of immunoglobulin G [IgG] subclasses; I50.32 Chronic diastolic (congestive) heart failure; I13.0 Hypertensive heart and chronic kidney disease with heart failure and stage 1 through stage 4 chronic kidney disease, or unspecified chronic kidney disease; L03.116 Cellulitis of left lower limb; L03.115 Cellulitis of right lower limb; J45.21 Mild intermittent asthma with (acute) exacerbation; S61.411A Laceration without foreign body of right hand, initial encounter; C44.90 Unspecified malignant neoplasm of skin, unspecified; K21.9 Gastro-esophageal reflux disease without esophagitis; J43.9 Emphysema, unspecified; E11.43 Type 2 diabetes mellitus with diabetic autonomic (poly)neuropathy; E78.2 Mixed hyperlipidemia; K58.2 Mixed irritable bowel syndrome; M19.90 Unspecified osteoarthritis, unspecified site; E55.9 Vitamin D deficiency, unspecified; N18.3 Chronic kidney disease, stage 3 (moderate); G47.00 Insomnia, unspecified; J30.2 Other seasonal allergic rhinitis; G43.909 Migraine, unspecified, not intractable, without status migrainosus; D64.9 Anemia, unspecified; K59.00 Constipation, unspecified; S40.021A Contusion of right upper arm, initial encounter; F41.9 Anxiety disorder, unspecified; F32.9 Major depressive disorder, single episode, unspecified; N73.9 Female pelvic inflammatory disease, unspecified; I87.2 Venous insufficiency (chronic) (peripheral); Z87.01 Personal history of pneumonia (recurrent); Z90.710 Acquired absence of both cervix and uterus; Z90.49 Acquired absence of other specified parts of digestive tract; Z87.81 Personal history of (healed) traumatic fracture; Z82.49 Family history of ischemic heart disease and other diseases of the circulatory system; Z88.6 Allergy status to analgesic agent; Z82.3 Family history of stroke; Z91.048 Other nonmedicinal substance allergy status; Z88.2 Allergy status to sulfonamides; Z89.421 Acquired absence of other right toe(s); Z79.4 Long term (current) use of insulin; Z79.899 Other long term (current) drug therapy; Z99.81 Dependence on supplemental oxygen; W10.8XXA Fall (on) (from) other stairs and steps, initial encounter; Y93.89 Activity, other specified; Y92.098 Other place in other non-institutional residence as the place of occurrence of the external cause; Y99.8 Other external cause status; Z68.35 Body mass index [BMI] 35.0-35.9, adult